=== PATIENT | female | born 1945 | race Caucasian/White ===

== ENCOUNTER 2018-12-08 07:04 | Observation (INO) | payer MEDICARE ==
[2018-12-08 07:54] LABS: BASO % 0.5 % (0-6); EOS % 6.8 % (0-6); GRAN % 54.5 % (47-80); HEMATOCRIT 39.9 % (35.0-47.0); HEMOGLOBIN 13.3 gm/dl (11.6-16.0); LYMPH % 27.7 % (16-45); MEAN CELL VOLUME 94.5 fl (81-97); MEAN CORPUSCULAR HEMOGLOBIN 31.5 pg (27-33); MEAN CORPUSCULAR HGB CONC 33.3 g/dl (32-36); MEAN PLATELET VOLUME 10.4 fl (7.4-10.4); MONO % 10.5 % (0-9); PLATELET COUNT 271 K/uL (130-400); RED BLOOD COUNT 4.22 M/uL (3.80-5.40); RED CELL DISTRIBUTION WIDTH 13.4 % (11.5-14.5); WHITE BLOOD COUNT W/O DIFF 5.6 K/uL (4.2-12.2)
[2018-12-08 08:08] LABS: BLOOD UREA NITROGEN 12 mg/dL (8-23); CREATININE 0.5 mg/dL (0.5-0.9); EST GLOMERULAR FILTRATION RATE > 60 mL/min; PARTIAL THROMBOPLASTIN TIME 35.8 SECONDS (24.5-39.1); PROTHROMBIN TIME (PATIENT) 19.8 SECONDS (9.5-12.1)
[2018-12-08 08:09] LABS: TOTAL PROTEIN 6.7 g/dL (6.6-8.7)
[2018-12-08 08:11] LABS: GLUCOSE,RANDOM 99 mg/dL (74-109)
[2018-12-08 08:13] LABS: ALB/GLOB RATIO 1.3 (1.1-1.8); ALBUMIN 3.8 g/dL (4.0-5.0); ALKALINE PHOSPHATASE 55 U/L (45-87); ALT/SGPT 13 U/L (<33); AST/SGOT 20 U/L (10.0-35.0); CREATINE PHOSPHOKINASE 42 U/L (26-192)
[2018-12-08] MEDS ORDERED: ASPIRIN 81 MG CHEWABLE TABLET PO ONE (08:15)
[2018-12-08 08:16] LABS: CKMB 1.3 ng/mL (<3.77)
--- NOTE | 2018-12-08 08:18 | Emergency Department Record ---
History of Present Illness - General Chief Complaint: Rapid heartbeat Stated Complaint: PALPITATIONS Time Seen by Provider: 12/08/18 07:32 Source: Patient Mode of Arrival: Ambulatory Limitations: No limitations - History of Present Illness Initial Comments: pt awoke to her heart racing. she has been having this off and on for 3 wks. she also had chest pain and l shoulder pain. MD Complaint: "Heart racing" Onset/Timin -: Hour(s) Context: Awoke with symptoms Associated Symptoms: Chest pain, Shortness of breath - Related Data Home Medications Medication Instructions Recorded Confirmed Last Taken Levothyroxine Sodium 100 mcg PO QAM 12/08/18 12/08/18 12/07/18 Warfarin Sodium 5 mg PO QHS 12/08/18 12/08/18 12/07/18 Allergies Allergy/AdvReac Type Severity Reaction Status Date / Time No Known Drug Allergies Allergy Verified 12/08/18 07:12 Travel Screening - Travel/Exposure Within Last 30 Days Have you traveled within the last 30 days?: No Review of Systems Reviewed: No additional complaints except as noted below Constitutional: Reports: As per HPI. Denies: Chills, Fever, Malaise, Night sweats, Weakness, Weight change Eyes: Reports: As per HPI. Denies: Eye discharge, Eye pain, Photophobia, Vision change ENT: Reports: As per HPI. Denies: Congestion, Dental pain, Ear pain, Epistaxis , Hearing loss, Throat pain Respiratory: Reports: As per HPI. Denies: Cough, Dyspnea, Hemoptysis, Stridor, Wheezes Cardiovascular: Reports: As per HPI, Chest pain, Palpitations. Denies: Arrhythmia, Dyspnea on exertion, Edema, Murmurs, Orthopnea, Paroxysmal nocturnal dyspnea, Rheumatic Fever, Syncope Endocrine: Reports: As per HPI. Denies: Fatigue, Heat or cold intolerance, Polydipsia, Polyuria Gastrointestinal: Reports: As per HPI. Denies: Abdominal pain, Constipation, Diarrhea, Hematemesis, Hematochezia, Melena, Nausea, Vomiting Genitourinary: Reports: As per HPI. Denies: Abnormal menses, Discharge, Dyspareunia, Dysuria, Frequency, Hematuria, Incontinence, Retention, Urgency Musculoskeletal: Reports: As per HPI. Denies: Arthralgia, Back pain, Gout, Joint swelling, Myalgia, Neck pain Skin: Reports: As per HPI. Denies: Bruising, Change in color, Change in hair/ nails, Lesions, Pruritus, Rash Neurological: Reports: As per HPI. Denies: Abnormal gait, Confusion, Headache, Numbness, Paresthesias, Seizure, Tingling, Tremors, Vertigo, Weakness Psychiatric: Reports: As per HPI. Denies: Anxiety, Auditory hallucinations, Depression, Homicidal thoughts, Suicidal thoughts, Visual hallucinations Hematological/Lymphatic: Reports: As per HPI. Denies: Anemia, Blood Clots, Easy bleeding, Easy bruising, Swollen glands Past Medical History - SOCIAL HISTORY Smoking Status: Former smoker Alcohol Use: None Drug Use: None - RESPIRATORY Hx Respiratory Disorders: Yes Hx Pulmonary Embolism: Yes - CARDIOVASCULAR Hx Cardio Disorders: No - NEURO Hx Neuro Disorders: No - GI Hx GI Disorders: No - Hx Genitourinary Disorders: No - ENDOCRINE Hx Endocrine Disorders: Yes Hx Thyroid Disease: Yes - MUSCULOSKELETAL Hx Musculoskeletal Disorders: No - PSYCH Hx Psych Problems: No - HEMATOLOGY/ONCOLOGY Hx Hematology/Oncology Disorders: No Family Medical History Any Significant Family History?: Yes Hx Heart Disease: Father, Mother Physical Exam - General General Appearance: Alert, Oriented x3, Cooperative, No acute distress - Head Head exam: Normal inspection - Eye Eye exam: Normal appearance, PERRL, EOMI Pupils: Normal accommodation - ENT ENT exam: Normal exam, Mucous membranes moist, Normal external ear exam, Normal orophraynx Ear exam: Normal external inspection. negative: External canal tenderness Nasal Exam: Normal inspection. negative: Discharge, Sinus tenderness Mouth exam: Normal external inspection, Tongue normal Teeth exam: Normal inspection. negative: Dental caries Throat exam: Normal inspection. negative: Tonsillar erythema, Tonsillar exudate - Neck Neck exam: Normal inspection, Full ROM. negative: Tenderness - Respiratory Respiratory exam: Normal lung sounds bilaterally. negative: Respiratory distress - Cardiovascular Cardiovascular Exam: Regular rate, Normal rhythm, Normal heart sounds - GI/Abdominal GI/Abdominal exam: Soft, Normal bowel sounds. negative: Tenderness - Rectal Rectal exam: Deferred - exam: Deferred - Extremities Extremities exam: Normal inspection, Full ROM, Normal capillary refill. negative: Tenderness - Back Back exam: Reports: Normal inspection, Full ROM. Denies: Muscle spasm, Rash noted, Tenderness - Neurological Neurological exam: Alert, CN II-XII intact, Normal gait, Oriented X3 - Psychiatric Psychiatric exam: Normal affect, Normal mood - Skin Skin exam: Dry, Intact, Normal color, Warm Course Vital Signs 12/08/18 07:08 Temperature 98.0 F Pulse Rate 76 Respiratory 18 Rate Blood Pressure 146/83 Pulse Ox 99 Medical Decision Making - Lab Data Result diagrams: 12/08/18 07:48 12/08/18 07:48 Lab Results 12/08/18 Range/Units 07:48 WBC 5.6 (4.2-12.2) K/uL RBC 4.22 (3.80-5.40) M/uL Hgb 13.3 (11.6-16.0) gm/dl Hct 39.9 (35.0-47.0) % MCV 94.5 (81-97) fl MCH 31.5 (27-33) pg MCHC 33.3 (32-36) g/dl RDW 13.4 (11.5-14.5) % Plt Count 271 (130-400) K/uL MPV 10.4 (7.4-10.4) fl Gran % 54.5 (47-80) % Lymphocytes % 27.7 (16-45) % Monocytes % 10.5 H (0-9) % Eosinophils % 6.8 H (0-6) % Basophils % 0.5 (0-6) % Disposition Disposition: Admit Clinical Impression: Palpitations Chest pain Qualifiers: Chest pain type: unspecified Qualified Code(s): R07.9 - Chest pain, unspecified Disposition: Still a Patient at [facility] Decision to Admit: Admit from ER Decision to Admit Date: 12/08/18 Decision to Admit Time: 10:33 Forms: Patient Portal Access Quality - Quality Measures Quality Measures: N/A - Blood Pressure Screening Does Patient Have Any of the Following: No Blood Pressure Classification: Pre-Hypertensive BP Reading Systolic Measurement: 146 Diastolic Measurement: 83 Screening for High Blood Pressure: < Pre-Hypertensive BP, F/U Documented > [ [id number]] Pre-Hypertensive Follow-up Interventions: Follow-up with rescreen every year.
[2018-12-08 08:24] LABS: THYROID STIMULATING HORMONE 1.23 uIU/mL (0.270-4.20)
[2018-12-08] MEDS ORDERED: NITROGLYCERIN 0.4MG SL TABLET #25 BTL SL PRN (11:48)
[2018-12-08] MEDS ORDERED: TEMAZEPAM 15 MG CAPSULE PO PRN (11:48)
[2018-12-08] MEDS ORDERED: ACETAMINOPHEN 500 MG TABLET PO PRN (11:48)
--- NOTE | 2018-12-08 12:14 | RADIOLOGY REPORT ---
EXAM: CHEST, TWO VIEWS HISTORY: PALPITATIONS, LEFT ARM PAIN. MILD DIFFICULTY IN BREATHING. TECHNIQUE: Upright PA and lateral views of the chest were obtained. Comparison: CT angiogram of the chest dated 04/21/18. FINDINGS: The heart is not enlarged. No pulmonary venous hypertension is seen. The thoracic aorta is mildly tortuous and atherosclerotic. Changes of emphysema are suggested in the upper lungs. Biapical lung scarring is present. No confluent air space opacity is seen nor is there costophrenic angle blunting or pneumothorax. There are degenerative changes scattered throughout the visualized spine. IMPRESSION: 1. NO RADIOGRAPHIC EVIDENCE OF ACUTE CARDIOPULMONARY DISEASE. 2. EMPHYSEMA. BIAPICAL LUNG SCARRING. JOB NUMBER: [id number] [facility]
--- NOTE | 2018-12-08 12:23 | History & Physical ---
History of Present Illness - Date of Service Date of Service for History & Physical: 12/09/18 - History of Present Illness Admitting Diagnosis: palpitations, cp History of Present Illness: 73 yo female presents for palpitations and CP on/off 3 weeks. PMH PE 10 yrs ago- coumadin, hypothyroid, former smoker, 12/08/18 Pt to [facility] ER via ambulance for CP/Palpiations. CP was radiating to left arm ad that is when pt called ems. given NTG previous to arrival, pain 2/10 at arrival. WBC 5.6, hgb 13.3, hct 39.9, Plt 271 D-Dimer <0.19, INT 2 (theraputic coumadin) Na 135, K 3.8, Cl 99, CO2 24, Anion gap 12, bun 12, Cr 0.5, GFR >60, LFTs wnl trop <0.010, CKMB 1.3 TSH 1.23 98.0F, 76, 146/83, RR 18, 99% RA, 11/29 pain CXR no acute process -emphysema ASA 324mg PO Admit for CP, cardiac workup 12/08/18 Pt resting in bed, no distress and pain free. VSS, pt sitting up in bed, eating lunch. Labs negative currently, neg ekg. Pt denies any immediate concers as pain has resolved but still worried why sensation of "skipped beats" has been waking her up for 3 weeks. lungs clear but diminished, heart rate regular but auscultated and palpated what sounds like early beats. Continuos tele and cards consult am. repeat trop and ckmb PCP [facility] Travel Screening - Travel/Exposure Within Last 30 Days Have you traveled within the last 30 days?: No - Travel/Exposure Within Last Year Have you traveled outside the [place] in the last year?: No - Additonal Travel Details Have you been exposed to anyone with a communicable illness?: No - Travel Symptoms Symptom Screening: None Review of Systems Constitutional: Reports: As per HPI. Denies: Chills, Fever, Malaise, Night sweats, Weakness, Weight change Eyes: Reports: As per HPI. Denies: Eye discharge, Eye pain, Photophobia, Vision change ENT: Reports: As per HPI. Denies: Congestion, Dental pain, Ear pain, Epistaxis , Hearing loss, Throat pain Respiratory: Reports: As per HPI. Denies: Cough, Dyspnea, Hemoptysis, Stridor, Wheezes Cardiovascular: Reports: As per HPI, Chest pain, Palpitations. Denies: Arrhythmia, Dyspnea on exertion, Edema, Murmurs, Orthopnea, Paroxysmal nocturnal dyspnea, Rheumatic Fever, Syncope Endocrine: Reports: As per HPI. Denies: Fatigue, Heat or cold intolerance, Polydipsia, Polyuria Gastrointestinal: Reports: As per HPI. Denies: Abdominal pain, Constipation, Diarrhea, Hematemesis, Hematochezia, Melena, Nausea, Vomiting Genitourinary: Reports: As per HPI. Denies: Abnormal menses, Discharge, Dyspareunia, Dysuria, Frequency, Hematuria, Incontinence, Retention, Urgency Musculoskeletal: Reports: As per HPI. Denies: Arthralgia, Back pain, Gout, Joint swelling, Myalgia, Neck pain Skin: Reports: As per HPI. Denies: Bruising, Change in color, Change in hair/ nails, Lesions, Pruritus, Rash Neurological: Reports: As per HPI. Denies: Abnormal gait, Confusion, Headache, Numbness, Paresthesias, Seizure, Tingling, Tremors, Vertigo, Weakness Psychiatric: Reports: As per HPI. Denies: Anxiety, Auditory hallucinations, Depression, Homicidal thoughts, Suicidal thoughts, Visual hallucinations Hematological/Lymphatic: Reports: As per HPI. Denies: Anemia, Blood Clots, Easy bleeding, Easy bruising, Swollen glands Past Medical History - SOCIAL HISTORY Smoking Status: Former smoker Alcohol Use: None Drug Use: None - RESPIRATORY Hx Respiratory Disorders: Yes Hx Pulmonary Embolism: Yes - CARDIOVASCULAR Hx Cardio Disorders: No - NEURO Hx Neuro Disorders: No - GI Hx GI Disorders: No - Hx Genitourinary Disorders: No - ENDOCRINE Hx Endocrine Disorders: Yes Hx Thyroid Disease: Yes - MUSCULOSKELETAL Hx Musculoskeletal Disorders: No - PSYCH Hx Psych Problems: No - HEMATOLOGY/ONCOLOGY Hx Hematology/Oncology Disorders: No Family Medical History Any Significant Family History?: Yes Hx Heart Disease: Father, Mother H&P Meds/Allergies - Allergies Allergies: Allergies Allergy/AdvReac Type Severity Reaction Status Date / Time No Known Drug Allergies Allergy Verified 12/08/18 07:12 - Home Medications Home Medications Medication Instructions Recorded Confirmed Last Taken Levothyroxine Sodium 100 mcg PO QAM 12/08/18 12/08/18 12/07/18 Warfarin Sodium 0.5 mg PO QHS 12/08/18 12/08/18 12/07/18 Warfarin Sodium 5 mg PO QHS 12/08/18 12/08/18 12/07/18 - Active Medications Active Medications: Current Medications Acetaminophen (Tylenol 500mg Tab) 1,000 mg PO Q6H PRN PRN Reason: PAIN - MILD(1-4)/FEVER Aspirin (Ecotrin (Ec)) 325 mg PO DAILY MAILE Levothyroxine Sodium (Synthroid) 100 mcg PO DAILYTHY MAILE Nitroglycerin (Nitrostat 0.4mg) 0.4 mg SL Q5MIN PRN PRN Reason: CHEST PAIN Temazepam (Restoril) 15 mg PO QHS PRN PRN Reason: INSOMNIA Warfarin Sodium (Coumadin) 5 mg PO QHS [facility] Physical Exam - Vital Signs Vital Signs: Vital Signs - Last 24 Hrs Temp Pulse Pulse Resp BP BP BP 12/08/18 11:04 67 16 121/72 12/08/18 09:13 70 20 156/77 12/08/18 07:08 98.0 F 76 18 146/83 Pulse Ox 12/08/18 11:04 95 12/08/18 09:13 98 12/08/18 07:08 99 - General General Appearance: Alert, Oriented x3, Cooperative, No acute distress Limitations: No limitations - Head Head exam: Normal inspection - Eye Eye exam: Normal appearance, PERRL, EOMI Pupils: Normal accommodation - ENT ENT exam: Normal exam, Mucous membranes moist, Normal external ear exam, Normal orophraynx Ear exam: Normal external inspection. negative: External canal tenderness Nasal Exam: Normal inspection. negative: Discharge, Sinus tenderness Mouth exam: Normal external inspection, Tongue normal Teeth exam: Normal inspection. negative: Dental caries Throat exam: Normal inspection. negative: Tonsillar erythema, Tonsillar exudate - Neck Neck exam: Normal inspection, Full ROM. negative: Tenderness - Respiratory Respiratory exam: Normal lung sounds bilaterally. negative: Respiratory distress - Cardiovascular Cardiovascular Exam: Regular rate, Normal rhythm, Normal heart sounds Peripheral Pulses: 3+: Radial (R), Radial (L), Dorsalis Pedis (R), Dorsalis Pedis (L) - GI/Abdominal GI/Abdominal exam: Soft, Normal bowel sounds. negative: Tenderness - Rectal Rectal exam: Deferred - exam: Deferred - Extremities Extremities exam: Normal inspection, Full ROM, Normal capillary refill. negative: Tenderness - Back Back exam: Reports: Normal inspection, Full ROM. Denies: Muscle spasm, Rash noted, Tenderness - Neurological Neurological exam: Alert, CN II-XII intact, Normal gait, Oriented X3 - Psychiatric Psychiatric exam: Normal affect, Normal mood - Skin Skin exam: Dry, Intact, Normal color, Warm Results - Labs Result Diagrams: 12/08/18 07:48 12/08/18 07:48 Labs Last 24 Hours: Laboratory Results - last 24 hr 12/08/18 12/08/18 12/08/18 07:48 07:48 07:48 WBC 5.6 RBC 4.22 Hgb 13.3 Hct 39.9 MCV 94.5 MCH 31.5 MCHC 33.3 RDW 13.4 Plt Count 271 MPV 10.4 Gran % 54.5 Lymphocytes % 27.7 Monocytes % 10.5 H Eosinophils % 6.8 H Basophils % 0.5 PT 19.8 H INR 2.0 APTT 35.8 D-Dimer < 0.19 Sodium 135 L Potassium 3.8 Chloride 99 Carbon Dioxide 24.0 Anion Gap 12.0 BUN 12 Creatinine 0.5 Estimated GFR > 60 Random Glucose 99 Calcium 9.0 Total Bilirubin 0.50 AST 20 ALT 13 Alkaline Phosphatase 55 Creatine Kinase 42 CK-MB (CK-2) 1.3 Troponin T < 0.010 Total Protein 6.7 Albumin 3.8 L Globulin 2.9 Albumin/Globulin Ratio 1.3 TSH 1.23 - Imaging and Cardiology Chest x-ray Status: Report reviewed VTE H&P Assessment - Risk for VTE Risk for VTE: Yes Risk Level: High Risk Assessment Date: 12/08/18 Risk Assessment Time: 12:30 VTE Orders Placed or Will Be Placed: No VTE Reason for No Prophylaxis: Contraindicated (on coumadin) Plan - Detailed Diagnosis and Plan (1) Palpitations Current Visit: Yes Status: Acute Base Code: R00.2 - PALPITATIONS Comment: 12/08/18 -pt reports 3 weeks of "skipped beat" sensation, PAC seen on tele and noted with assessment but pt in no distrss -EKG WNL, trops neg -Card consult pending, ECHO pending - mag wnl (2) Chest pain Current Visit: Yes Status: Acute Qualifiers: Chest pain type: unspecified Qualified Code(s): R07.9 - Chest pain, unspecified Base Code: R07.9 - CHEST PAIN, UNSPECIFIED Comment: 12/08/18 -Pt had CP previous to arrival to the floor, currently pain free -continue tele (3) DVT prophylaxis Current Visit: Yes Status: Acute Base Code: [id number] - Comment: 12/08/18 -hold lovenox, pt theraputic coumadin (4) Full code status Current Visit: Yes Status: Acute Base Code: Z78.9 - OTHER SPECIFIED HEALTH STATUS Comment: 12/08/18 -full code
[2018-12-08] MEDS ORDERED: PNEUM 13-VAL/PF 0.5 ML IM ONE (12:44)
[2018-12-08] MEDS ORDERED: WARFARIN 1 MG TABLET PO SCH (22:00)
[2018-12-08] MEDS ORDERED: WARFARIN 5 MG TAB PO SCH (22:00)
[2018-12-09 01:16] LABS: CKMB < 1.0 ng/mL (<3.77)
[2018-12-09] MEDS ORDERED: LEVOTHYROXINE SODIUM 100 MCG TABLET PO SCH (07:00)
[2018-12-09] MEDS ORDERED: ASPIRIN 325 MG TAB ENTERIC-COATED PO SCH (10:00)
--- NOTE | 2018-12-09 12:58 | Discharge Summary ---
Providers Discharge Summary Date: 12/09/18 Date of admission: 12/08/18 11:21 Expected Date of Discharge: 12/09/18 Attending physician: SLICK AMIN Primary care physician: FREDERIC REGALADO D.O. Consults: Consult Orders 12/08/18 12:23 Consult - Cardiology NOW Consulting Provider: JORGE MENDOSA Physician Instructions: Reason For Exam: CP, palpitations Does pt have current die setter?: Not Established Physical Exam - Vital Signs Vital Signs: Vital Signs - Last 24 Hrs Temp Pulse Pulse Resp BP BP Pulse Ox 12/09/18 10:28 97.8 F 66 16 114/63 97 12/09/18 05:00 97.9 F 71 16 124/71 94 L 12/09/18 01:00 98.1 F 76 16 140/78 97 12/08/18 21:00 98.1 F 71 76 16 124/72 97 12/08/18 13:48 98 12/08/18 13:02 16 98 - General General Appearance: Alert, Oriented x3, Cooperative, No acute distress Limitations: No limitations - Head Head exam: Normal inspection - Eye Eye exam: Normal appearance, PERRL, EOMI Pupils: Normal accommodation - ENT ENT exam: Normal exam, Mucous membranes moist, Normal external ear exam, Normal orophraynx Ear exam: Normal external inspection. negative: External canal tenderness Nasal Exam: Normal inspection. negative: Discharge, Sinus tenderness Mouth exam: Normal external inspection, Tongue normal Teeth exam: Normal inspection. negative: Dental caries Throat exam: Normal inspection. negative: Tonsillar erythema, Tonsillar exudate - Neck Neck exam: Normal inspection, Full ROM. negative: Tenderness - Respiratory Respiratory exam: Normal lung sounds bilaterally. negative: Respiratory distress - Cardiovascular Cardiovascular Exam: Regular rate, Normal rhythm, Normal heart sounds Peripheral Pulses: 3+: Radial (R), Radial (L), Dorsalis Pedis (R), Dorsalis Pedis (L) - GI/Abdominal GI/Abdominal exam: Soft, Normal bowel sounds. negative: Tenderness - Rectal Rectal exam: Deferred - exam: Deferred - Extremities Extremities exam: Normal inspection, Full ROM, Normal capillary refill. negative: Tenderness - Back Back exam: Reports: Normal inspection, Full ROM. Denies: Muscle spasm, Rash noted, Tenderness - Neurological Neurological exam: Alert, CN II-XII intact, Normal gait, Oriented X3 - Psychiatric Psychiatric exam: Normal affect, Normal mood - Skin Skin exam: Dry, Intact, Normal color, Warm Hospitalization - Hospitalization Admission Diagnosis: palpitations, cp - Problem List/Discharge Diagnosis (1) Palpitations Status: Acute Base Code: R00.2 - PALPITATIONS Comment: 12/08/18 -pt reports 3 weeks of "skipped beat" sensation, PAC seen on tele and noted with assessment but pt in no distrss -EKG WNL, trops neg -Card consult pending, ECHO pending - mag wnl 12/09/18 -ECHO completed this afternoon, Navya consulted on pt -verbal instructions to d/c with 48 hr holter and f/u OTPT -PACs noted during tele with underlying NSR -Dr Mendosa approved d/c (2) Chest pain Status: Acute Discharge Diagnosis: Chest pain type: unspecified Qualified Code(s): R07.9 - Chest pain, unspecified Base Code: R07.9 - CHEST PAIN, UNSPECIFIED Comment: 12/08/18 -Pt had CP previous to arrival to the floor, currently pain free -continue tele 12/09/18 - denies CP this admission. -trop, CKMB neg, ekg neg, echo (report pending, reviewed by Navya) (3) DVT prophylaxis Status: Acute Base Code: SAD0189 - Comment: 12/08/18 -hold lovenox, pt theraputic coumadin 12/09/18 -continue coumadin (4) Full code status Status: Acute Base Code: Z78.9 - OTHER SPECIFIED HEALTH STATUS Comment: 12/09 -full code - Hospitalization Course Disposition: Home, Self-Care Hospital Course: 73 yo female presents for palpitations and CP on/off 3 weeks. PMH PE 10 yrs ago- coumadin, hypothyroid, former smoker, 12/08/18 Pt to [facility] ER via ambulance for CP/Palpiations. CP was radiating to left arm ad that is when pt called ems. given NTG previous to arrival, pain 2/10 at arrival. WBC 5.6, hgb 13.3, hct 39.9, Plt 271 D-Dimer <0.19, INT 2 (theraputic coumadin) Na 135, K 3.8, Cl 99, CO2 24, Anion gap 12, bun 12, Cr 0.5, GFR >60, LFTs wnl trop <0.010, CKMB 1.3 TSH 1.23 98.0F, 76, 146/83, RR 18, 99% RA, 2/10 pain CXR no acute process -emphysema ASA 324mg PO Admit for CP, cardiac workup 12/08/18 Pt resting in bed, no distress and pain free. VSS, pt sitting up in bed, eating lunch. Labs negative currently, neg ekg. Pt denies any immediate concers as pain has resolved but still worried why sensation of "skipped beats" has been waking her up for 3 weeks. lungs clear but diminished, heart rate regular but auscultated and palpated what sounds like early beats. Continuos tele and cards consult am. repeat trop and ckmb PCP [facility] Procedures: Imaging and X-Rays 12/08/18 08:29 CXR [CHEST 2 VIEWS] [RAD] Stat Cardiology Procedures 12/08/18 07:28 EKG ONCE 12/08/18 10:25 EKG ONCE 12/08/18 11:48 E Learning Developer .Continuous EKG QDX2@0600 12/08/18 21:12 Echo W/CF & Cardiac Doppler NOW 12/09/18 12:45 Holter Monitor NOW Abnormal Labs: Abnormal Lab Results 12/08/18 12/08/18 12/08/18 Range/Units 07:48 07:48 07:48 Monocytes % 10.5 H (0-9) % Eosinophils % 6.8 H (0-6) % PT 19.8 H (9.5-12.1) SECONDS Sodium 135 L (136-145) mmol/L Albumin 3.8 L (4.0-5.0) g/dL LDL Cholesterol Measurd (0-100) mg/dL HDL Cholesterol (40-60) mg/dL 12/08/18 Range/Units 07:48 Monocytes % (0-9) % Eosinophils % (0-6) % PT (9.5-12.1) SECONDS Sodium (136-145) mmol/L Albumin (4.0-5.0) g/dL LDL Cholesterol Measurd 168.0 H (0-100) mg/dL HDL Cholesterol 69 H (40-60) mg/dL Condition at Discharge: (2) Stable Discharge Medications - Discharge Medications Home Medications: Ambulatory Orders Levothyroxine Sodium 100 mcg PO QAM 12/08/18 [Last Taken 12/07/18] Warfarin Sodium 0.5 mg PO QHS 12/08/18 [Last Taken 12/07/18] Warfarin Sodium 5 mg PO QHS 12/08/18 [Last Taken 12/07/18] Acetaminophen [Tylenol 500Mg Tab] 1,000 mg PO Q6H PRN tablet 12/09/18 [Last Taken Unknown] Temazepam [Restoril] 15 mg PO QHS PRN cap 12/09/18 [Last Taken Unknown] Warfarin Sodium [Coumadin] 0.5 mg PO QHS tablet 12/09/18 [Last Taken Unknown] Discharge Plan - Discharge Instructions Activity at Discharge: Increase Activity as Tolerated Diet at Discharge: Advance to Usual Diet Instructions: Chest Pain (DC), Heart Palpitations (DC), Holter Monitoring (DC) , Deep Vein Thrombosis Prevention (DC) Additional Instructions: 2 Activity: Increase Activity as Tolerated 2 Diet: Advance to Usual Diet 2 Consults: 2 Follow Up: Make an appointment to follow up with Dr. Mendosa in the specialty clinic here at [facility] in one week 2 Dressing/Wound Care: (Type) (Change) 2 Additional: Continue your current diet, follow up with Dr Mendosa as an out patient Go to ER for any return of chest pain especially if you have radiating pain to your left arm, left jaw, or abdomen. Continue current medications Quality Measures - Quality Measures Quality Measures: Advance Directives, Documentation of Current Medications in Medical Record, Elder Maltreatment Screen and Follow-Up Plan, Screening for High Blood Pressure and F/U Documented - Current Medications Quality Measure: Measure #130: Documentation of Current Medications Documentation of Current Medications: <Current Medications Documented/Reviewed> [G8427] - Blood Pressure Screening Quality Measure: Screening for High Blood Pressure and Follow-Up Documented Does Patient Have Any of the Following: No Blood Pressure Classification: Pre-Hypertensive BP Reading Systolic Measurement: 146 Diastolic Measurement: 83 Screening for High Blood Pressure: < Pre-Hypertensive BP, F/U Documented > [ G8950] Pre-Hypertensive Follow-up Interventions: Referral to alternative/primary care provider. - Advance Directives Quality Measure: Measure #47: Care Plan Advance Directives Established: No (Informational pamphlet given to patient.) Advance Directives Information Provided To Patient: No Advance Directives on File: No Living Will: No Power of Furniture Manager: No Advance Care Planning: <Care Plan/Decision Maker Not Decided; Discussed & Documented> [1124F] - Elder Abuse Suspicion Index Screening: Elder Abuse Suspicion Index Screening Rely on people for bathing, dressing, shopping, banking, etc: No Prevented from getting food, clothes, medication, etc: No Made to feel shamed or threatened by someone: No Forced to sign papers or use money against will: No Feel afraid, touched in ways not wanted or hurt physically: No Poor eye contact, withdrawn, malnourished, cuts or bruises: No Screening Result: Negative result EASI Reference Information: Alannah DIAS, Freda C, Ehsan D, Paul Gaytan.Development and validation of a tool to assist physicians identification of elder abuse: The Elder Abuse Suspicion Index (EASI ). Journal of Elder Abuse and Neglect, 2008; 20 (3): 276-300. - Elder Maltreatment Screen Quality Measures: Elder Maltreatment Screen and Follow-Up Plan Elder Maltreatment Screen: <Negative, No Follow-Up Plan Required> [G8734]
--- NOTE | 2018-12-09 19:39 | Cardiology Consult ---
DATE: 12/09/2018 CONSULTING PHYSICIAN: JORGE WILSON M.D. REASON FOR CONSULTATION: CHEST PAIN AND PALPITATIONS. Ms. Jasso is 73 years old, who presented to [facility] with complaints of nightly palpitations and left arm pain. She reports feeling fast heart rates at night when laying down for the past two weeks. She also noted some left arm pain, which instigated her to coming to [facility] on 12/08/2018. Currently, she denies chest pain, palpitations, TIA, syncope, or heart failure symptoms. She does have a remote history of pulmonary embolism greater than ten years ago. She has history of hypothyroidism, on Levothyroxine. Her cardiac enzymes have been negative. She is on Warfarin for long-term treatment of pulmonary embolism. She does not recall if she had a hyper-coagulable state. PAST MEDICAL HISTORY INCLUDES: 1. Hypothyroidism. 2. Pulmonary embolism. PAST SURGICAL HISTORY: Nothing significant. MEDICATIONS AT HOME INCLUDE: Levothyroxine 100 mcg daily Warfarin as directed ALLERGIES: NONE REPORTED. SOCIAL HISTORY: She denies any active tobacco use. No significant alcohol use. FAMILY HISTORY: Noncontributory in regard to coronary artery disease. PHYSICAL EXAM: GENERAL: She is afebrile. VITAL SIGNS: Pulse is in the 70's. Respirations 18. Blood pressure was 146/83. LUNGS: Clear to auscultation. CARDIAC EXAM: Normal. ABDOMEN: Soft. EXTREMITIES: Reveal no edema. ECHOCARDIOGRAM: Demonstrated normal ejection fraction and normal pulmonary pressures. There were no significant structural abnormalities noted. IMPRESSION/PLAN: Her cardiac enzymes are currently negative. Currently, she can be discharged for outpatient follow-up. Will place a 48-hour Holter monitor to assess daily palpitations occurring nightly. In addition, will plan on a Treadmill Stress Test as an outpatient. JOB NUMBER: [id number] MTDD
== END 2018-12-09 14:55 | disposition home or self-care (01) ==
LOC: ER 07:04 → MEDSURG 11:21
PROVIDERS: ADMIT Internal Medicine; ATTEND Internal Medicine
DX: R07.9 Chest pain, unspecified (principal); E03.9 Hypothyroidism, unspecified; M25.512 Pain in left shoulder; Z86.711 Personal history of pulmonary embolism; Z79.01 Long term (current) use of anticoagulants; Z87.891 Personal history of nicotine dependence
CPT/HCPCS: 82550; 83735; 85025; 85730; 85610; 82553 ×2; 80053; 84443; 80061; 84484 ×2; 85379; 71046; 93005 ×2; 93010; 93306; 93225; 93226; G0378 ×2; 99220; 99285

== ENCOUNTER 2019-07-09 07:36 | Emergency (ER) | payer MEDICARE ==
[2019-07-09] MEDS ORDERED: TOPICAL LIDOCAINE W/ EPI 5 ML TOP ONE (07:44)
[2019-07-09 08:08] LABS: ABSOLUTE NEUTROPHIL COUNT 3.07; BASO % 0.5 % (0-6); EOS % 6.8 % (0-6); GRAN % 53.8 % (47-80); HEMATOCRIT 35.1 % (35.0-47.0); HEMOGLOBIN 12.7 gm/dl (11.6-16.0); LYMPH % 28.4 % (16-45); MEAN CELL VOLUME 93.1 fl (81-97); MEAN CORPUSCULAR HEMOGLOBIN 33.6 pg (27-33); MEAN CORPUSCULAR HGB CONC 36.2 g/dl (32-36); MONO % 10.5 % (0-9); PLATELET COUNT 239 K/uL (130-400); RED BLOOD COUNT 3.77 M/uL (3.80-5.40); RED CELL DISTRIBUTION WIDTH 13.9 % (11.5-14.5); WHITE BLOOD COUNT W/O DIFF 5.7 K/uL (4.2-12.2)
[2019-07-09 08:18] LABS: INR 2.7; PROTHROMBIN TIME (PATIENT) 26.8 SECONDS (9.5-12.1)
--- NOTE | 2019-07-09 09:29 | Emergency Department Record ---
History of Present Illness - General Chief complaint: Nosebleed/epistaxis Stated complaint: NOSE BLEED Time Seen by Provider: 07/09/19 07:39 Source: Patient Mode of Arrival: Ambulatory Limitations: No limitations - History of Present Illness Initial comments: pt has had a nosebleed since 7am. she has had them in the past and has had to be cauterized in the past. she recently had her coumadin increased. MD complaint: Epistaxis Onset/Timin -: Minutes(s) Location: Nose Consistency: Constant Improves with: Pressure Context-Epistaxis: Warfarin use - Related Data Home Medications Medication Instructions Recorded Confirmed Last Taken Ascorbic Acid [Vitamin C] 1,000 mg PO DAILY 07/09/19 07/09/19 07/08/19 Ca/D3/Mag Ox/Zinc/Hat Trimmer/Sergio/Bor 1 tab PO DAILY 07/09/19 07/09/19 07/08/19 [Calcium 600-D3 Plus Caplet] Pravastatin Sodium [Pravachol] 40 mg PO QHS 07/09/19 07/09/19 07/08/19 Ubidecarenone [Co Q-10] 100 mg PO DAILY 07/09/19 07/09/19 07/08/19 Previous Rx's Medication Instructions Recorded Acetaminophen [Tylenol 500Mg Tab] 1,000 mg PO Q6H PRN tablet 12/09/18 Allergies Allergy/AdvReac Type Severity Reaction Status Date / Time No Known Drug Allergies Allergy Verified 12/08/18 07:12 Travel Screening - Travel/Exposure Within Last 30 Days Have you traveled within the last 30 days?: No - Travel/Exposure Within Last Year Have you traveled outside the [place] in the last year?: No - Additonal Travel Details Have you been exposed to anyone with a communicable illness?: No Review of Systems Reviewed: No additional complaints except as noted below Constitutional: Reports: As per HPI. Denies: Chills, Fever, Malaise, Night swe ats, Weakness, Weight change Eyes: Reports: As per HPI. Denies: Eye discharge, Eye pain, Photophobia, Vision change ENT: Reports: As per HPI. Denies: Congestion, Dental pain, Ear pain, Epistaxis, Hearing loss, Throat pain Respiratory: Reports: As per HPI. Denies: Cough, Dyspnea, Hemoptysis, Stridor, Wheezes Cardiovascular: Reports: As per HPI. Denies: Arrhythmia, Chest pain, Dyspnea on exertion, Edema, Murmurs, Orthopnea, Palpitations, Paroxysmal nocturnal dyspnea, Rheumatic Fever, Syncope Endocrine: Reports: As per HPI. Denies: Fatigue, Heat or cold intolerance, Polydipsia, Polyuria Gastrointestinal: Reports: As per HPI. Denies: Abdominal pain, Constipation, Diarrhea, Hematemesis, Hematochezia, Melena, Nausea, Vomiting Genitourinary: Reports: As per HPI. Denies: Abnormal menses, Discharge, Dyspareunia, Dysuria, Frequency, Hematuria, Incontinence, Retention, Urgency Musculoskeletal: Reports: As per HPI. Denies: Arthralgia, Back pain, Gout, Joint swelling, Myalgia, Neck pain Skin: Reports: As per HPI. Denies: Bruising, Change in color, Change in hair/ nails, Lesions, Pruritus, Rash Neurological: Reports: As per HPI. Denies: Abnormal gait, Confusion, Headache, Numbness, Paresthesias, Seizure, Tingling, Tremors, Vertigo, Weakness Psychiatric: Reports: As per HPI. Denies: Anxiety, Auditory hallucinations, Depression, Homicidal thoughts, Suicidal thoughts, Visual hallucinations Hematological/Lymphatic: Reports: As per HPI. Denies: Anemia, Blood Clots, Easy bleeding, Easy bruising, Swollen glands Past Medical History - SOCIAL HISTORY Smoking Status: Former smoker Alcohol Use: None Drug Use: None - RESPIRATORY Hx Respiratory Disorders: Yes Hx Pulmonary Embolism: Yes - CARDIOVASCULAR Hx Cardio Disorders: No - NEURO Hx Neuro Disorders: Yes Hx Dizziness: Yes - GI Hx GI Disorders: No - Hx Genitourinary Disorders: No - ENDOCRINE Hx Endocrine Disorders: Yes Hx Thyroid Disease: Yes - MUSCULOSKELETAL Hx Musculoskeletal Disorders: No - PSYCH Hx Psych Problems: No - HEMATOLOGY/ONCOLOGY Hx Hematology/Oncology Disorders: No Family Medical History Any Significant Family History?: No Hx Heart Disease: Father, Mother Physical Exam - General General Appearance: Alert, Oriented x3, Cooperative, No acute distress - Head Head exam: Normal inspection - Eye Eye exam: Normal appearance, PERRL, EOMI Pupils: Normal accommodation - ENT ENT exam: Normal exam, Mucous membranes moist, Normal external ear exam, Normal orophraynx Ear exam: Normal external inspection. negative: External canal tenderness Nasal Exam: Dried blood. negative: Discharge, Sinus tenderness Mouth exam: Normal external inspection, Tongue normal Teeth exam: Normal inspection. negative: Dental caries Throat exam: Normal inspection. negative: Tonsillar erythema, Tonsillar exudate - Neck Neck exam: Normal inspection, Full ROM. negative: Tenderness - Respiratory Respiratory exam: Normal lung sounds bilaterally. negative: Respiratory distress - Cardiovascular Cardiovascular Exam: Regular rate, Normal rhythm, Normal heart sounds - GI/Abdominal GI/Abdominal exam: Soft, Normal bowel sounds. negative: Tenderness - Rectal Rectal exam: Deferred - exam: Deferred - Extremities Extremities exam: Normal inspection, Full ROM, Normal capillary refill. negative: Tenderness - Back Back exam: Reports: Normal inspection, Full ROM. Denies: Muscle spasm, Rash noted, Tenderness - Neurological Neurological exam: Alert, CN II-XII intact, Normal gait, Oriented X3 - Psychiatric Psychiatric exam: Normal affect, Normal mood - Skin Skin exam: Dry, Intact, Normal color, Warm Course Vital Signs 07/09/19 07:38 Temperature 97.2 F L Pulse Rate 70 Respiratory 16 Rate Blood Pressure 142/82 Pulse Ox 97 - Reevaluation(s) Reevaluation #1: 07/09/19 09:30 lido w epi used then cauterized w silver nitrate. no further bleeding Medical Decision Making - Lab Data Result diagrams: 07/09/19 08:06 Lab Results 07/09/19 07/09/19 Range/Units 08:06 08:06 WBC 5.7 (4.2-12.2) K/uL RBC 3.77 L (3.80-5.40) M/uL Hgb 12.7 (11.6-16.0) gm/dl Hct 35.1 (35.0-47.0) % MCV 93.1 (81-97) fl MCH 33.6 H (27-33) pg MCHC 36.2 H (32-36) g/dl RDW 13.9 (11.5-14.5) % Plt Count 239 (130-400) K/uL MPV 9.0 (7.4-10.4) fl Gran % 53.8 (47-80) % Lymphocytes % 28.4 (16-45) % Monocytes % 10.5 H (0-9) % Eosinophils % 6.8 H (0-6) % Basophils % 0.5 (0-6) % Absolute Neutrophils 3.07 PT 26.8 H (9.5-12.1) SECONDS INR 2.7 Disposition Disposition: Discharge Clinical Impression: Epistaxis Disposition: Home, Self-Care Condition: (1) Good Instructions: Nosebleed (ED) Additional Instructions: follow up with family doctor. return sooner if worse. do not blow or pick at nose. Forms: Patient Portal Access Quality - Quality Measures Quality Measures: N/A - Blood Pressure Screening Does Patient Have Any of the Following: Active Dx of HTN Blood Pressure Classification: Pre-Hypertensive BP Reading Systolic Measurement: 142 Diastolic Measurement: 82 Screening for High Blood Pressure: Patient Exclusion, Hx of HTN [G9744]
== END 2019-07-09 09:46 | disposition home or self-care (01) ==
LOC: ER 07:36
DX: R04.0 Epistaxis (principal); Z79.01 Long term (current) use of anticoagulants; I10 Essential (primary) hypertension; Z87.891 Personal history of nicotine dependence
CPT/HCPCS: 30901; 85025; 85610; 99283

== ENCOUNTER 2019-08-10 19:51 | Observation (INO) | payer MEDICARE ==
[2019-08-10] MEDS ORDERED: ONDANSETRON HCL IV 4 MG/2 ML VIAL IVP ONE (19:58)
[2019-08-10] MEDS ORDERED: HYOSCYAMINE SULFATE ODT 0.125 MG TAB.SUBL SL ONE (19:58)
[2019-08-10] MEDS ORDERED: 0.9 % SODIUM CHLORIDE 1000ML 1,000 ML IV SCH (20:00)
--- NOTE | 2019-08-10 20:03 | Emergency Department Record ---
History of Present Illness - General Chief Complaint: Palpitations Stated Complaint: RAPIDS HEART RATE/SICK TO HER STOMACH Time Seen by Provider: 08/10/19 19:54 Source: Patient Mode of Arrival: Wheelchair Limitations: No limitations - History of Present Illness Initial Comments: 74 yo female presents to ED for evaluation of upper abdominal pain, nausea, loose stools, and "rapid heart beat" intermittently. Patient reports that her symptoms began this morning, denies fevers, chills, or recent illness. Patient denies taking anything for her symptoms prior to arrival. Patient denies vomiting or chest discomfort symptoms. MD Complaint: Palpitations Onset/Timin -: Days(s) Context: Occurred during rest Associated Symptoms: Nausea/vomiting - Related Data Home Medications Medication Instructions Recorded Confirmed Last Taken Mag Carb/Aluminum Hydrox/Algin 355 ml PO QID 08/10/19 08/10/19 08/10/19 [Gaviscon Liquid] Previous Rx's Medication Instructions Recorded Acetaminophen [Tylenol 500Mg Tab] 1,000 mg PO Q6H PRN tablet 12/09/18 Allergies Allergy/AdvReac Type Severity Reaction Status Date / Time No Known Drug Allergies Allergy Verified 12/08/18 07:12 Review of Systems Constitutional: Denies: Chills, Fever, Malaise, Night sweats Eyes: Denies: Eye discharge, Eye pain ENT: Denies: Congestion, Ear pain, Epistaxis Respiratory: Denies: Cough, Dyspnea Cardiovascular: Reports: Palpitations. Denies: Chest pain, Dyspnea on exertion Endocrine: Denies: Fatigue, Heat or cold intolerance Gastrointestinal: Reports: Nausea. Denies: Abdominal pain, Vomiting Genitourinary: Denies: Incontinence, Retention Musculoskeletal: Denies: Arthralgia, Back pain Skin: Denies: Bruising, Change in color Neurological: Denies: Abnormal gait, Confusion, Headache, Seizure Psychiatric: Denies: Anxiety Hematological/Lymphatic: Denies: Anemia, Blood Clots Past Medical History - SOCIAL HISTORY Smoking Status: Former smoker Drug Use: None - RESPIRATORY Hx Respiratory Disorders: Yes Hx Pulmonary Embolism: Yes - CARDIOVASCULAR Hx Cardio Disorders: No - NEURO Hx Neuro Disorders: Yes Hx Dizziness: Yes - GI Hx GI Disorders: No - Hx Genitourinary Disorders: No - ENDOCRINE Hx Endocrine Disorders: Yes Hx Thyroid Disease: Yes - MUSCULOSKELETAL Hx Musculoskeletal Disorders: No - PSYCH Hx Psych Problems: No - HEMATOLOGY/ONCOLOGY Hx Hematology/Oncology Disorders: No Family Medical History Hx Heart Disease: Father, Mother Physical Exam - General General Appearance: Alert, Oriented x3, Cooperative, Mild distress Limitations: No limitations - Head Head exam: Atraumatic, Normocephalic, Normal inspection Head exam detail: negative: Abrasion, Contusion, Kruse's sign, General tenderness, Hematoma, Laceration - Eye Eye exam: Normal appearance. negative: Conjunctival injection, Periorbital swelling, Periorbital tenderness, Scleral icterus - ENT Ear exam: negative: Auricular hematoma, Auricular trauma Nasal Exam: negative: Active bleeding, Discharge, Dried blood, Foreign body Mouth exam: negative: Drooling, Laceration, Muffled voice, Tongue elevation - Neck Neck exam: Normal inspection. negative: Meningismus, Tenderness - Respiratory Respiratory exam: Normal lung sounds bilaterally. negative: Rales, Respiratory distress, Rhonchi, Stridor - Cardiovascular Cardiovascular Exam: Regular rate, Normal rhythm, Normal heart sounds - GI/Abdominal GI/Abdominal exam: Soft, Tenderness (Mild TTP LUQ, no rebound, no guarding symptoms noted on examination.). negative: Rebound, Rigid - Rectal Rectal exam: Deferred - exam: Deferred - Extremities Extremities exam: Normal inspection. negative: Pedal edema, Tenderness - Back Back exam: Denies: CVA tenderness (R), CVA tenderness (L) - Neurological Neurological exam: Alert, Normal gait, Oriented X3 - Psychiatric Psychiatric exam: Normal affect, Normal mood - Skin Skin exam: Normal color. negative: Abrasion Type of lesion: negative: abrasion Course - Reevaluation(s) Reevaluation #1: 08/10/19 20:03 EKG: NSR 79 Normal axis, normal intervals No acute ST-T wave changes Reevaluation #2: 08/10/19 21:07 Laboratory studies were reviewed and appear grossly unremarkable for an acute process except for: Na 125 Cl 89 Reevaluation #3: 08/10/19 22:06 UA resulted: 6-10 WBCs 4+ Bacteria Rocephin ordered to infuse Reevaluation #4: 08/10/19 22:29 CT Abdomen and pelvis: Inflammatory changes LUQ, ? Omental infarction No other acute findings are identified Patient was updated on all results, as patient remains weak and dizzy with attempted ambulation, will admit for further treatment. Patient is in agreement with the plan of care as discussed. Medical Decision Making - Lab Data Result diagrams: 08/10/19 20:00 08/10/19 20:35 Disposition Disposition: Admit Clinical Impression: Pyelonephritis, Omental infarction, Weakness generalized Disposition: Still a Patient at [facility] Decision to Admit: Admit from ER Decision to Admit Date: 08/10/19 Decision to Admit Time: 22:08 Condition: (2) Stable Forms: Patient Portal Access Time of Disposition: 22:40 Quality - Quality Measures Quality Measures: N/A - Blood Pressure Screening Does Patient Have Any of the Following: No Blood Pressure Classification: Pre-Hypertensive BP Reading Systolic Measurement: 166 Diastolic Measurement: 87 Screening for High Blood Pressure: < Pre-Hypertensive BP, F/U Documented > [G8950] Pre-Hypertensive Follow-up Interventions: Referral to alternative/primary care provider.
[2019-08-10 20:10] LABS: ABSOLUTE NEUTROPHIL COUNT 5.81; BASO % 0.4 % (0-6); HEMATOCRIT 40.4 % (35.0-47.0); HEMOGLOBIN 13.6 gm/dl (11.6-16.0); LYMPH % 16.8 % (16-45); MEAN CELL VOLUME 90.8 fl (81-97); MEAN CORPUSCULAR HEMOGLOBIN 30.6 pg (27-33); MEAN CORPUSCULAR HGB CONC 33.7 g/dl (32-36); MEAN PLATELET VOLUME 9.3 fl (7.4-10.4); MONO % 5.8 % (0-9); PLATELET COUNT 316 K/uL (130-400); RED BLOOD COUNT 4.45 M/uL (3.80-5.40); RED CELL DISTRIBUTION WIDTH 13.5 % (11.5-14.5); WHITE BLOOD COUNT W/O DIFF 7.6 K/uL (4.2-12.2)
[2019-08-10 20:54] LABS: BLOOD UREA NITROGEN 12 mg/dL (8-23); CREATININE 0.5 mg/dL (0.5-0.9); EST GLOMERULAR FILTRATION RATE > 60 mL/min; LIPASE 24 U/L (13-60); TOTAL PROTEIN 6.7 g/dL (6.6-8.7)
[2019-08-10 20:56] LABS: GLUCOSE,RANDOM 106 mg/dL (74-109)
[2019-08-10 20:59] LABS: ALB/GLOB RATIO 1.8 (1.1-1.8); ALBUMIN 4.3 g/dL (4.0-5.0); ALKALINE PHOSPHATASE 62 U/L (35-104); ALT/SGPT 16 U/L (<33); AST/SGOT 25 U/L (10.0-35.0)
[2019-08-10 21:55] LABS: URINE APPEARANCE SL CLOUDY; URINE BILIRUBIN NEGATIVE (NEGATIVE); URINE BLOOD TRACE-I (NEGATIVE); URINE COLOR YELLOW; URINE GLUCOSE (UA) NEGATIVE (NEGATIVE); URINE KETONE TRACE (NEGATIVE); URINE LEUKOCYTE ESTERASE MODERATE (NEGATIVE); URINE NITRITE NEGATIVE (NEGATIVE); URINE PROTEIN NEGATIVE (NEGATIVE); URINE UROBILINOGEN 0.2 E.U./dL (0.20 - 1.00)
[2019-08-10 22:02] LABS: URINE RBC 0 - 2 (NONE SEEN)
[2019-08-10 22:03] LABS: URINE BACTERIA 4+; URINE EPITHELIAL CELLS 0 - 2 (FEW)
--- NOTE | 2019-08-10 22:22 | CT SCAN REPORT ---
EXAMINATION: CT Abdomen and Pelvis with IV Contrast EXAM DATE: 08/10/2019 9:54 PM TECHNIQUE: CT imaging of the abdomen and pelvis was performed with intravenous contrast. Coronal and sagittal images were reconstructed. IV Contrast: The amount and type of contrast are recorded in the medical record. INDICATION: LLQ abdominal pain COMPARISON: 04/21/2018 CTA chest ENCOUNTER: Not applicable CT ABDOMEN AND PELVIS FINDINGS: Lung Bases: Included extent of the lung bases are clear. Hepatobiliary: The liver has a normal size with a smooth surface. The hepatic and portal veins appear patent. Pancreas: The pancreas is normal. Spleen: The spleen is not enlarged. Adrenals: The adrenal glands are normal. Gastrointestinal: The stomach and small bowel are normal with no obstruction or inflammation. The alberto endix is not identified. There is diverticular disease involving primarily the left colon including the sigmoid segment with no associated inflammation. The large bowel is otherwise unremarkable. Reproductive Organs: The uterus is absent. Lymphatic System: There is no adenopathy within the abdomen or pelvis. Vasculature: Normal caliber abdominal aorta with mild atherosclerotic disease. Peritoneum: Suggestion of mild inflammatory changes noted in the left upper quadrant omental fat. No free fluid or free air. IMPRESSION: 1. Slight inflammatory changes noted in the left upper quadrant which could be secondary to a mild o mental infarction. Please correlate clinically. 2. No other evidence for significant acute abnormalities are present. 3. There is scattered colonic diverticula present without CT evidence of acute diverticulitis. 4. Additional findings, as above. Dictated by: Karina Schmidt MD on 08/10/2019 10:04 PM. .
[2019-08-10] MEDS ORDERED: CEFTRIAXONE 1GM/50ML BAG 1 GM/50 ML BAG IVPB ONE (22:39)
[2019-08-10] MEDS ORDERED: ACETAMINOPHEN 500 MG TABLET PO PRN (23:57)
[2019-08-10] MEDS ORDERED: CEFTRIAXONE 1GM/50ML BAG 1 GM/50 ML BAG IVPB SCH (23:57)
[2019-08-10] MEDS ORDERED: 0.9 % SODIUM CHLORIDE 1000ML 1,000 ML IV ONE (23:57)
[2019-08-11] MEDS ORDERED: WARFARIN 1 MG TABLET PO SCH ×2 (00:30→22:00)
[2019-08-11] MEDS ORDERED: WARFARIN 5 MG TAB PO SCH ×2 (00:30→22:00)
[2019-08-11] MEDS ORDERED: LEVOTHYROXINE SOD 112 MCG TAB PO SCH (07:00)
[2019-08-11] MEDS ORDERED: CEFTRIAXONE 1GM/50ML BAG 1 GM/50 ML BAG IVPB SCH ×2 (10:00→22:00)
[2019-08-11] MEDS ORDERED: FLU VAC QS 2019-20 (INPT, 6MO+) 60MCG/0.5ML IM ONE (10:00)
[2019-08-11 10:43] LABS: ABSOLUTE NEUTROPHIL COUNT 5.35; BASO % 0.5 % (0-6); EOS % 2.2 % (0-6); GRAN % 70.4 % (47-80); HEMATOCRIT 40.9 % (35.0-47.0); HEMOGLOBIN 13.7 gm/dl (11.6-16.0); LYMPH % 14.8 % (16-45); MEAN CELL VOLUME 92.7 fl (81-97); MEAN CORPUSCULAR HEMOGLOBIN 31.1 pg (27-33); MEAN CORPUSCULAR HGB CONC 33.5 g/dl (32-36); MEAN PLATELET VOLUME 9.4 fl (7.4-10.4); MONO % 12.1 % (0-9); PLATELET COUNT 307 K/uL (130-400); RED BLOOD COUNT 4.41 M/uL (3.80-5.40); RED CELL DISTRIBUTION WIDTH 13.8 % (11.5-14.5); WHITE BLOOD COUNT W/O DIFF 7.6 K/uL (4.2-12.2)
--- NOTE | 2019-08-11 10:47 | History & Physical ---
History of Present Illness - Date of Service Date of Service for History & Physical: 08/11/19 - History of Present Illness Admitting Diagnosis: Pyelonephritis. Omental infarction. Generalized weakness History of Present Illness: 74 year old female patient presented to ED for evaluation of LUQ abdominal pain, nausea, dizziness, and generalized "not feeling well". Patient reports symptoms present x 2 weeks but significantly worse over the last 2 days. Denies vomiting but reported daily nausea. Noted diarrhea 2 days ago. Patient denied fever, chills, cough, or urinary symptoms. Patient reports a medical history of hypothyroidism and PE, for which she is currently on coumadin. PCP: Dr. Galo ED Course: EKG: NSR 79, normal axis, normal intervals, no acute ST-T wave changes CBC, CMP, Troponin unremarkable, Lipase 24 UA: moderate leuk, 4+ bacteria Abd/pelvis CT: possible mild LUQ omental infarct, no other acute findings, scattered diverticula without diverticulitis IV Rocephin 08/11/19: Patient A&O x 4, resting comfortable in bed. Pain 0/10, currently asymptomatic. Ate complete breakfast tray with no nausea or vomiting. Has ambulated to bathroom several times with no symptoms. Travel Screening - Travel/Exposure Within Last 30 Days Have you traveled within the last 30 days?: No - Travel/Exposure Within Last Year Have you traveled outside the [place] in the last year?: No - Additonal Travel Details Have you been exposed to anyone with a communicable illness?: No - Travel Symptoms Symptom Screening: None Review of Systems Reviewed: No additional complaints except as noted below Constitutional: Denies: Chills, Fever, Malaise, Night sweats Eyes: Denies: Eye discharge, Eye pain ENT: Denies: Congestion, Ear pain, Epistaxis Respiratory: Denies: Cough, Dyspnea Cardiovascular: Denies: Chest pain, Dyspnea on exertion, Palpitations Endocrine: Denies: Fatigue, Heat or cold intolerance Gastrointestinal: Reports: Abdominal pain (LUQ), Nausea. Denies: Vomiting Genitourinary: Denies: Incontinence, Retention Musculoskeletal: Denies: Arthralgia, Back pain Skin: Denies: Bruising, Change in color Neurological: Reports: Weakness, Other (dizziness). Denies: Abnormal gait, Confusion, Headache, Seizure Psychiatric: Denies: Anxiety Hematological/Lymphatic: Denies: Anemia, Blood Clots Past Medical History - SOCIAL HISTORY Smoking Status: Former smoker Alcohol Use: None Drug Use: None - RESPIRATORY Hx Respiratory Disorders: Yes Hx Bronchitis: Yes (childhood) Hx Pulmonary Embolism: Yes - CARDIOVASCULAR Hx Cardio Disorders: No - NEURO Hx Neuro Disorders: Yes Hx Headaches: Yes (as a teenager) - GI Hx GI Disorders: No - Hx Genitourinary Disorders: Yes Hx Bladder Problem: Yes Hx UTI: Yes Comment:: urinary frequency especially at night - ENDOCRINE Hx Endocrine Disorders: Yes Hx Diabetes: No Hx Thyroid Disease: Yes - MUSCULOSKELETAL Hx Musculoskeletal Disorders: No Hx Arthritis: Yes - PSYCH Hx Psych Problems: No Hx Depression: Yes Feelings of Hopelessness: Yes Comment:: occasional depression/hoplessness - HEMATOLOGY/ONCOLOGY Hx Hematology/Oncology Disorders: No Family Medical History Any Significant Family History?: Yes Hx Cancer: Mother Hx Diabetes: Mother Hx Heart Disease: Mother Hx HTN: Mother Hx Seizures: Children H&P Meds/Allergies - Allergies Allergies: Allergies Allergy/AdvReac Type Severity Reaction Status Date / Time No Known Drug Allergies Allergy Verified 12/08/18 07:12 - Home Medications Home Medications Medication Instructions Recorded Confirmed Last Taken Mag Carb/Aluminum Hydrox/Algin 355 ml PO QID 08/10/19 08/10/19 08/10/19 [Gaviscon Liquid] Previous Rx's Medication Instructions Recorded Acetaminophen [Tylenol 500Mg Tab] 1,000 mg PO Q6H PRN tablet 12/09/18 - Active Medications Active Medications: Current Medications Acetaminophen (Tylenol 500mg Tab) 1,000 mg PO Q6H PRN PRN Reason: PAIN - MILD(1-4)/FEVER Sodium Chloride () 1,000 mls @ 0 mls/hr IV .Q0M [facility] Last Infusion: 08/10/19 21:28 Dose: Infused Documented by: CEFTRIAXONE 1GM/50ML BAG (Ceftriaxone 1 Gm-D5w Bag) 1 gm in 50 mls @ 100 mls/hr IVPB Q12HR [facility] Last Infusion: 08/11/19 10:25 Dose: Infused Documented by: Levothyroxine Sodium (Synthroid) 112 mcg PO DAILYTHY [facility] Last Admin: 08/11/19 06:59 Dose: 112 mcg Documented by: Warfarin Sodium (Coumadin) 5 mg PO QHS MAILE Warfarin Sodium (Coumadin) 1.5 mg PO QHS [facility] Physical Exam - Vital Signs Vital Signs: Vital Signs - Last 24 Hrs Temp Pulse Pulse Pulse Resp BP BP 08/11/19 08:43 18 08/11/19 08:00 98.0 F 72 18 133/78 08/11/19 00:00 97.7 F 79 18 151/80 08/10/19 22:19 97.8 F 75 148/82 08/10/19 21:29 71 148/82 08/10/19 21:09 71 20 152/76 08/10/19 20:07 97.7 F 76 18 166/87 Pulse Ox 08/11/19 08:43 08/11/19 08:00 95 08/11/19 00:00 98 08/10/19 22:19 08/10/19 21:29 97 08/10/19 21:09 98 08/10/19 20:07 97 - General General Appearance: Alert, Oriented x3, Cooperative, No acute distress Limitations: No limitations - Head Head exam: Atraumatic, Normocephalic, Normal inspection Head exam detail: negative: Abrasion, Contusion, Kruse's sign, General tenderness, Hematoma, Laceration - Eye Eye exam: Normal appearance, PERRL. negative: Conjunctival injection, Periorbital swelling, Periorbital tenderness, Scleral icterus - ENT ENT exam: Mucous membranes moist, Normal external ear exam Ear exam: negative: Auricular hematoma, Auricular trauma Nasal Exam: negative: Active bleeding, Discharge, Dried blood, Foreign body Mouth exam: negative: Drooling, Laceration, Muffled voice, Tongue elevation - Neck Neck exam: Normal inspection. negative: Meningismus, Tenderness - Respiratory Respiratory exam: Normal lung sounds bilaterally. negative: Rales, Respiratory distress, Rhonchi, Stridor - Cardiovascular Cardiovascular Exam: Regular rate, Normal rhythm, Normal heart sounds Peripheral Pulses: 2+: Radial (R), Radial (L), Dorsalis Pedis (R), Dorsalis Pedis (L) - GI/Abdominal GI/Abdominal exam: Soft, Normal bowel sounds. negative: Guarding, Rebound, Rigid, Tenderness - Rectal Rectal exam: Deferred - exam: Deferred - Extremities Extremities exam: Normal inspection. negative: Pedal edema, Tenderness - Back Back exam: Denies: CVA tenderness (R), CVA tenderness (L) - Neurological Neurological exam: Alert, Normal gait, Oriented X3 - Psychiatric Psychiatric exam: Normal affect, Normal mood - Skin Skin exam: Normal color. negative: Abrasion Type of lesion: negative: abrasion Results - Labs Result Diagrams: 08/10/19 20:00 08/10/19 20:35 Labs Last 24 Hours: Laboratory Results - last 24 hr 08/10/19 08/10/19 08/10/19 20:00 20:35 20:35 WBC 7.6 RBC 4.45 Hgb 13.6 Hct 40.4 MCV 90.8 MCH 30.6 MCHC 33.7 RDW 13.5 Plt Count 316 MPV 9.3 Gran % 76.0 Lymphocytes % 16.8 Monocytes % 5.8 Eosinophils % 1.0 Basophils % 0.4 Absolute Neutrophils 5.81 Sodium 125 L Potassium 3.8 Chloride 89 L Carbon Dioxide 23.0 Anion Gap 13.0 BUN 12 Creatinine 0.5 Estimated GFR > 60 Random Glucose 106 Calcium 9.0 Total Bilirubin 0.60 AST 25 ALT 16 Alkaline Phosphatase 62 Troponin T < 0.010 Total Protein 6.7 Albumin 4.3 Globulin 2.4 Albumin/Globulin Ratio 1.8 Lipase 24 Urine Color Urine Appearance Urine pH Ur Specific [place] Urine Protein Urine Glucose (UA) Urine Ketones Urine Blood Urine Nitrite Urine Bilirubin Urine Urobilinogen Ur Leukocyte Esterase Urine RBC Urine WBC Ur Epithelial Cells Urine Bacteria 08/10/19 21:05 WBC RBC Hgb Hct MCV MCH MCHC RDW Plt Count MPV Gran % Lymphocytes % Monocytes % Eosinophils % Basophils % Absolute Neutrophils Sodium Potassium Chloride Carbon Dioxide Anion Gap BUN Creatinine Estimated GFR Random Glucose Calcium Total Bilirubin AST ALT Alkaline Phosphatase Troponin T Total Protein Albumin Globulin Albumin/Globulin Ratio Lipase Urine Color Yellow Urine Appearance Sl cloudy Urine pH 8.0 Ur Specific [place] 1.010 Urine Protein Negative Urine Glucose (UA) Negative Urine Ketones Trace H Urine Blood Trace-i Urine Nitrite Negative Urine Bilirubin Negative Urine Urobilinogen 0.2 Ur Leukocyte Esterase Moderate H Urine RBC 0 - 2 Urine WBC 6 - 10 Ur Epithelial Cells 0 - 2 Urine Bacteria 4+ - Imaging and Cardiology CT scan - abdomen Status: Report reviewed VTE H&P Assessment - Risk for VTE Risk for VTE: Yes Risk Level: Moderate Risk Assessment Date: 08/11/19 Risk Assessment Time: 10:47 VTE Orders Placed or Will Be Placed: No VTE Reason for No Prophylaxis: Not Indicated (Continue coumadin therapy) Plan - Detailed Diagnosis and Plan (1) Pyelonephritis Current Visit: Yes Status: Acute Base Code: N12 - TUBULO-INTERSTITIAL NEPHRITIS, NOT SPCF ACUTE OR CHRONIC Comment: 08/11/19: -UA: moderate leuk, 4+ bacteria -Urine culture pending -Rocephin 1gm IVPB q12h -Afebrile -WBC 7.6 -NS @ 100ml/hr (2) Omental infarction Current Visit: Yes Status: Acute Base Code: K55.069 - ACUTE INFARCTION OF INTESTINE, PART AND EXTENT UNSPECIFIED Comment: 08/11/19: -Abd/pelvic CT: inflammatory changes in LUQ could represent mild omental infarct -Asymptomatic on exam today, no pain with palpation -Anticoagulated with coumadin, INR 2.0 (07/22/19) -Continue to monitor (3) DVT prophylaxis Current Visit: No Status: Acute Base Code: [id number] - Comment: 08/11/19: -Moderate risk due to age and hospitalization -Continue home coumadin regimen -INR 2.0 07/22/19 (4) Full code status Current Visit: No Status: Acute Base Code: Z78.9 - OTHER SPECIFIED HEALTH STATUS Comment: 08/11/19: -Full code status this admission
--- NOTE | 2019-08-11 11:55 | Discharge Summary ---
Providers Discharge Summary Date: 08/11/19 Date of admission: 08/10/19 23:26 Expected Date of Discharge: 08/11/19 Attending physician: SLICK AMIN Primary care physician: Ryne Galo D.O. Physical Exam - Vital Signs Vital Signs: Vital Signs - Last 24 Hrs Temp Pulse Pulse Pulse Resp BP BP 08/11/19 08:43 18 08/11/19 08:00 98.0 F 72 18 133/78 08/11/19 00:00 97.7 F 79 18 151/80 08/10/19 22:19 97.8 F 75 148/82 08/10/19 21:29 71 148/82 08/10/19 21:09 71 20 152/76 08/10/19 20:07 97.7 F 76 18 166/87 Pulse Ox 08/11/19 08:43 08/11/19 08:00 95 08/11/19 00:00 98 08/10/19 22:19 08/10/19 21:29 97 08/10/19 21:09 98 08/10/19 20:07 97 - General General Appearance: Alert, Oriented x3, Cooperative, No acute distress Limitations: No limitations - Head Head exam: Atraumatic, Normocephalic, Normal inspection Head exam detail: negative: Abrasion, Contusion, Kruse's sign, General tenderness, Hematoma, Laceration - Eye Eye exam: Normal appearance, PERRL. negative: Conjunctival injection, Periorbital swelling, Periorbital tenderness, Scleral icterus - ENT ENT exam: Mucous membranes moist, Normal external ear exam Ear exam: negative: Auricular hematoma, Auricular trauma Nasal Exam: negative: Active bleeding, Discharge, Dried blood, Foreign body Mouth exam: negative: Drooling, Laceration, Muffled voice, Tongue elevation - Neck Neck exam: Normal inspection. negative: Meningismus, Tenderness - Respiratory Respiratory exam: Normal lung sounds bilaterally. negative: Rales, Respiratory distress, Rhonchi, Stridor - Cardiovascular Cardiovascular Exam: Regular rate, Normal rhythm, Normal heart sounds Peripheral Pulses: 2+: Radial (R), Radial (L), Dorsalis Pedis (R), Dorsalis Pedis (L) - GI/Abdominal GI/Abdominal exam: Soft, Normal bowel sounds. negative: Guarding, Rebound, Rigid, Tenderness - Rectal Rectal exam: Deferred - exam: Deferred - Extremities Extremities exam: Normal inspection. negative: Pedal edema, Tenderness - Back Back exam: Denies: CVA tenderness (R), CVA tenderness (L) - Neurological Neurological exam: Alert, Normal gait, Oriented X3 - Psychiatric Psychiatric exam: Normal affect, Normal mood - Skin Skin exam: Normal color. negative: Abrasion Type of lesion: negative: abrasion Hospitalization - Hospitalization Admission Diagnosis: Pyelonephritis. Omental infarction. Generalized weakness - Problem List/Discharge Diagnosis (1) Pyelonephritis Current Visit: Yes Status: Acute Base Code: N12 - TUBULO-INTERSTITIAL NEPHRITIS, NOT SPCF ACUTE OR CHRONIC Comment: 08/11/19: -UA: moderate leuk, 4+ bacteria -Urine culture pending -Rocephin 1gm IVPB q12h -Afebrile this admission -WBC 7.6 -Has tolerated PO intake -DC with Cipro 500mg BID x 7 days (2) Omental infarction Current Visit: Yes Status: Acute Base Code: K55.069 - ACUTE INFARCTION OF INTESTINE, PART AND EXTENT UNSPECIFIED Comment: 08/11/19: -Abd/pelvic CT: inflammatory changes in LUQ could represent mild omental infarct -Asymptomatic on exam today, no pain with palpation -Anticoagulated with coumadin, INR 2.0 (07/22/19) (3) DVT prophylaxis Current Visit: No Status: Acute Base Code: [id number] - Comment: 08/11/19: -Moderate risk due to age and hospitalization -Continue home coumadin regimen -INR 2.0 07/22/19 (4) Full code status Current Visit: No Status: Acute Base Code: Z78.9 - OTHER SPECIFIED HEALTH STATUS Comment: 08/11/19: -Full code status this admission - Hospitalization Course Disposition: Home, Self-Care Hospital Course: 74 year old female patient presented to ED for evaluation of LUQ abdominal pain, nausea, dizziness, and generalized "not feeling well". Patient reports symptoms present x 2 weeks but significantly worse over the last 2 days. Denies vomiting but reported daily nausea. Noted diarrhea 2 days ago. Patient denied fever, chills, cough, or urinary symptoms. Patient reports a medical history of hypothyroidism and PE, for which she is currently on coumadin. PCP: Dr. Galo ED Course: EKG: NSR 79, normal axis, normal intervals, no acute ST-T wave changes CBC, CMP, Troponin unremarkable, Lipase 24 UA: moderate leuk, 4+ bacteria Abd/pelvis CT: possible mild LUQ omental infarct, no other acute findings, scattered diverticula without diverticulitis IV Rocephin 08/11/19: Patient A&O x 4, resting comfortable in bed. Pain 0/10, currently asymptomatic. Ate complete breakfast tray with no nausea or vomiting. Has ambulated to bathroom several times with no symptoms. UPDATE: has tolerated PO intake, remains asymptomatic. Will dc home with cipro 500mg BID x 7 days and follow-up with PCP. Procedures: Imaging and X-Rays 08/10/19 19:58 ABDOMEN/PELVIS W CONTRAST [CT] Stat Cardiology Procedures 08/10/19 19:54 EKG NOW Abnormal Labs: Abnormal Lab Results 08/10/19 08/10/19 08/11/19 Range/Units 20:35 21:05 10:37 Lymphocytes % 14.8 L (16-45) % Monocytes % 12.1 H (0-9) % Sodium 125 L (136-145) mmol/L Chloride 89 L (98-107) mmol/L Urine Ketones Trace H (NEGATIVE) Ur Leukocyte Esterase Moderate H (NEGATIVE) Condition at Discharge: (2) Stable Discharge Medications - Discharge Medications Prescriptions: Cefdinir [Omnicef] 300 mg PO BID 7 Days #14 cap Home Medications: Ambulatory Orders Levothyroxine Sodium 112 mcg PO QAM 12/08/18 [Last Taken 08/10/19] Warfarin Sodium 6.5 mg PO QHS 12/08/18 [Last Taken 08/09/19] Acetaminophen [Tylenol 500Mg Tab] 1,000 mg PO Q6H PRN tablet 12/09/18 [Last Taken 08/10/19] Ascorbic Acid [Vitamin C] 1,000 mg PO DAILY 07/09/19 [Last Taken 08/10/19] Ca/D3/Mag Ox/Zinc/Animal Pathology Teacher/Sergio/Bor [Calcium 600-D3 Plus Caplet] 1 tab PO DAILY 07/09/19 [Last Taken 08/10/19] Ubidecarenone [Co Q-10] 100 mg PO DAILY 07/09/19 [Last Taken 08/10/19] Mag Carb/Aluminum Hydrox/Algin [Gaviscon Liquid] 355 ml PO QID 08/10/19 [Last Taken 08/10/19] Cefdinir [Omnicef] 300 mg PO BID 7 Days #14 cap 08/11/19 [Last Taken Unknown] Discharge Plan - Discharge Instructions Activity at Discharge: Increase Activity as Tolerated Diet at Discharge: Advance to Usual Diet Additional Instructions: -Start your antibiotic today, taking just one dose today, then increase to 2 doses a day until the antibiotic is completed. -Have your INR rechecked on Friday, as antibiotics can affect this -Follow-up with your PCP in 10-14 days Quality Measures - Quality Measures Quality Measures: Advance Directives, Documentation of Current Medications in Medical Record, Elder Maltreatment Screen and Follow-Up Plan, Screening for High Blood Pressure and F/U Documented - Current Medications Quality Measure: Measure #130: Documentation of Current Medications Documentation of Current Medications: <Current Medications Documented/Reviewed> [K7935] - Blood Pressure Screening Quality Measure: Screening for High Blood Pressure and Follow-Up Documented Does Patient Have Any of the Following: No Blood Pressure Classification: Pre-Hypertensive BP Reading Systolic Measurement: 166 Diastolic Measurement: 87 Screening for High Blood Pressure: < Pre-Hypertensive BP, F/U Documented > [D3694] Pre-Hypertensive Follow-up Interventions: Referral to alternative/primary care provider. - Advance Directives Quality Measure: Measure #47: Care Plan Advance Directives Established: No (Informational pamphlet given to patient.) Advance Directives Information Provided To Patient: No Advance Directives on File: No Living Will: No Power of Promos Executive Producer: No Advance Care Planning: <Care Plan/Decision Maker Not Decided; Discussed & Documented> [8105M] - Elder Abuse Suspicion Index Screening: Elder Abuse Suspicion Index Screening Rely on people for bathing, dressing, shopping, banking, etc: No Prevented from getting food, clothes, medication, etc: No Made to feel shamed or threatened by someone: No Forced to sign papers or use money against will: No Feel afraid, touched in ways not wanted or hurt physically: No Poor eye contact, withdrawn, malnourished, cuts or bruises: No Screening Result: Negative result EASI Reference Information: Alannah DIAS, Freda C, Ehsan D, Paul Gaytan.Development and validation of a tool to assist physicians identification of elder abuse: The Elder Abuse Suspicion Index (EASI ). Journal of Elder Abuse and Neglect, 2008; 20 (3): 276-300. - Elder Maltreatment Screen Quality Measures: Elder Maltreatment Screen and Follow-Up Plan Elder Maltreatment Screen: <Negative, No Follow-Up Plan Required> [G8734]
== END 2019-08-11 13:10 | disposition home or self-care (01) ==
LOC: ER 19:51 → MEDSURG 23:26
PROVIDERS: ADMIT Internal Medicine; ATTEND Internal Medicine
DX: N12 Tubulo-interstitial nephritis, not specified as acute or chronic (principal); K55.069 Acute infarction of intestine, part and extent unspecified; R53.1 Weakness; R42 Dizziness and giddiness; R00.2 Palpitations; R11.0 Nausea; R19.7 Diarrhea, unspecified; E03.9 Hypothyroidism, unspecified; Z79.01 Long term (current) use of anticoagulants; R35.0 Frequency of micturition; Z23 Encounter for immunization; Z87.891 Personal history of nicotine dependence; Z90.49 Acquired absence of other specified parts of digestive tract; Z86.711 Personal history of pulmonary embolism
CPT/HCPCS: 74177; 80053; 81001; 83690; 84484; 85025; 90686; 93005; 93010; 96365; 96374; 99220; 99285; J0696; J2405; J7030

== ENCOUNTER 2019-08-26 17:45 | Observation (INO) | payer MEDICARE ==
[2019-08-26] MEDS ORDERED: 0.9 % SODIUM CHLORIDE 1000ML 1,000 ML IV ONE ×2 (17:57→21:23)
--- NOTE | 2019-08-26 18:02 | Emergency Department Record ---
History of Present Illness - General Chief Complaint: Female Urogenital Problem Stated Complaint: CHILLS Time Seen by Provider: 08/26/19 17:51 Source: Patient, Family Mode of Arrival: Ambulatory Limitations: No limitations - History of Present Illness Initial comments: 74 yo female presents with weakness and chills throughout the day. She states she feels shaky and tired. She states she finished a course of antibiotics one week ago for a urinary tract infection. She denies headache, sore throat, cough, chest pain, abdominal pain. No vomiting but she does have nausea. No diarrhea. No abdominal pain. Her family noticed some confusion and trouble concentrating at times. She completed a course of Cefdinir. Urine Culture from 08/10/19 demonstrated dangelo sensitive E. coli >100,000 CFU. -: Days(s) (1) Location: Other Radiation: Other (Nausea no pain) Quality: Other (shaky) Consistency: Constant Improves with: None Worsens with: None Associated Symptoms: Nausea/vomiting - [place] Coma Scale Eye Response: (4) Open spontaneously Motor Response: (6) Obeys commands Verbal Response: (5) Oriented Avtar Total: 15 - Related Data Previous Rx's Medication Instructions Recorded Acetaminophen [Tylenol 500Mg Tab] 1,000 mg PO Q6H PRN tablet 12/09/18 Allergies Allergy/AdvReac Type Severity Reaction Status Date / Time No Known Drug Allergies Allergy Verified 12/08/18 07:12 Travel Screening - Travel/Exposure Within Last 30 Days Have you traveled within the last 30 days?: No - Travel/Exposure Within Last Year Have you traveled outside the [place] in the last year?: No - Additonal Travel Details Have you been exposed to anyone with a communicable illness?: No - Travel Symptoms Symptom Screening: Chills Review of Systems Constitutional: Reports: Chills, Malaise, Weakness Eyes: Denies: Eye discharge, Eye pain, Photophobia, Vision change ENT: Denies: Congestion, Throat pain Respiratory: Denies: Cough, Dyspnea, Hemoptysis, Stridor, Wheezes Cardiovascular: Denies: Chest pain, Palpitations, Syncope Endocrine: Reports: Fatigue. Denies: Polydipsia, Polyuria Gastrointestinal: Reports: Nausea. Denies: Abdominal pain, Diarrhea, Vomiting Genitourinary: Denies: Dysuria, Frequency, Incontinence Musculoskeletal: Denies: Arthralgia, Back pain, Neck pain Skin: Denies: Bruising, Change in color, Rash Neurological: Reports: Confusion (at times per family), Weakness. Denies: Abnormal gait, Headache, Numbness, Paresthesias, Seizure, Tingling, Tremors, Vertigo Psychiatric: Denies: Anxiety Hematological/Lymphatic: Denies: Anemia, Blood Clots, Easy bleeding, Easy bruising Past Medical History - SOCIAL HISTORY Smoking Status: Former smoker - RESPIRATORY Hx Respiratory Disorders: Yes Hx Bronchitis: Yes (childhood) Hx Pulmonary Embolism: Yes - CARDIOVASCULAR Hx Cardio Disorders: No - NEURO Hx Neuro Disorders: Yes Hx Headaches: Yes (as a teenager) - GI Hx GI Disorders: No Hx Abdominal Pain: Yes - Hx Genitourinary Disorders: Yes Hx Bladder Problem: Yes Hx UTI: Yes Comment:: urinary frequency especially at night - ENDOCRINE Hx Endocrine Disorders: Yes Hx Diabetes: No Hx Thyroid Disease: Yes - MUSCULOSKELETAL Hx Musculoskeletal Disorders: No Hx Arthritis: Yes - PSYCH Hx Psych Problems: No Hx Depression: Yes Comment:: occasional depression/hoplessness - HEMATOLOGY/ONCOLOGY Hx Hematology/Oncology Disorders: No Family Medical History Any Significant Family History?: Yes Hx Cancer: Mother Hx Diabetes: Mother Hx Heart Disease: Mother Hx HTN: Mother Hx Seizures: Children Physical Exam - General General Appearance: Alert, Oriented x3, Cooperative, No acute distress Limitations: No limitations - Head Head exam: Atraumatic, Normal inspection - Eye Eye exam: Normal appearance, PERRL. negative: Conjunctival injection, Scleral icterus - ENT ENT exam: Normal exam, Mucous membranes moist Ear exam: Normal external inspection Nasal Exam: Normal inspection Mouth exam: Normal external inspection Teeth exam: Normal inspection Throat exam: Normal inspection - Neck Neck exam: Normal inspection, Full ROM. negative: Tenderness - Respiratory Respiratory exam: Normal lung sounds bilaterally. negative: Respiratory distress - Cardiovascular Cardiovascular Exam: Regular rate, Normal rhythm, Normal heart sounds Peripheral Pulses: 2+: Radial (R), Radial (L) - GI/Abdominal GI/Abdominal exam: Soft. negative: Distended, Guarding, Tenderness - Rectal Rectal exam: Deferred - exam: Deferred - Extremities Extremities exam: Normal inspection. negative: Calf tenderness, Pedal edema, Tenderness - Back Back exam: Denies: CVA tenderness (R), CVA tenderness (L) - Neurological Neurological exam: Alert, Oriented X3 - Psychiatric Psychiatric exam: Normal affect, Normal mood - Skin Skin exam: Dry, Intact, Normal color, Warm Course Vitals reviewed No significant abnormalities - Reevaluation(s) Reevaluation #1: 08/26/19 18:23 The CBC was reviewed No acute abnormalities 08/26/19 18:31 INR is 2.6 08/26/19 18:39 The CMP was reviewed Na is 125 08/26/19 18:55 UA is negative Given she is symptomatic with a low sodium I recommend OBV and recheck labs in the AM. 08/26/19 18:58 The patient admits to significant water due to a recent UTI Free water will be withheld, gentle NS hydration and recheck labs The case was discussed with Katheryn Zuñiga BRAIDER SETTER for admit Medical Decision Making - Lab Data Result diagrams: 08/26/19 18:00 08/26/19 18:02 Disposition Disposition: Admit Clinical Impression: Hyponatremia Disposition: Still a Patient at [facility] Decision to Admit: Admit from ER Decision to Admit Date: 08/26/19 Decision to Admit Time: 19:00 Condition: (1) Good Forms: Patient Portal Access Time of Disposition: 19:01 Quality - Quality Measures Quality Measures: N/A - Blood Pressure Screening Does Patient Have Any of the Following: No Blood Pressure Classification: Hypertensive Reading Systolic Measurement: 166 Diastolic Measurement: 76 Screening for High Blood Pressure: < Pre-Hypertensive BP, F/U Documented > [G8950] Pre-Hypertensive Follow-up Interventions: Referral to alternative/primary care provider.
[2019-08-26 18:19] LABS: ABSOLUTE NEUTROPHIL COUNT 4.56; BASO % 0.6 % (0-6); EOS % 1.6 % (0-6); GRAN % 73.1 % (47-80); HEMATOCRIT 40.9 % (35.0-47.0); HEMOGLOBIN 13.7 gm/dl (11.6-16.0); LYMPH % 17.6 % (16-45); MEAN CELL VOLUME 90.7 fl (81-97); MEAN CORPUSCULAR HEMOGLOBIN 30.4 pg (27-33); MEAN CORPUSCULAR HGB CONC 33.5 g/dl (32-36); MEAN PLATELET VOLUME 9.7 fl (7.4-10.4); MONO % 7.1 % (0-9); PLATELET COUNT 335 K/uL (130-400); RED BLOOD COUNT 4.51 M/uL (3.80-5.40); RED CELL DISTRIBUTION WIDTH 13.8 % (11.5-14.5); WHITE BLOOD COUNT W/O DIFF 6.2 K/uL (4.2-12.2)
[2019-08-26 18:30] LABS: BLOOD UREA NITROGEN 8 mg/dL (8-23); CREATININE 0.4 mg/dL (0.5-0.9); EST GLOMERULAR FILTRATION RATE > 60 mL/min; INR 2.6; PARTIAL THROMBOPLASTIN TIME 49.9 SECONDS (24.5-39.1); PROTHROMBIN TIME (PATIENT) 25.1 SECONDS (9.5-12.1)
[2019-08-26 18:31] LABS: TOTAL PROTEIN 7.6 g/dL (6.6-8.7)
[2019-08-26 18:33] LABS: GLUCOSE,RANDOM 105 mg/dL (74-109)
[2019-08-26 18:36] LABS: ALB/GLOB RATIO 1.5 (1.1-1.8); ALBUMIN 4.6 g/dL (4.0-5.0); ALKALINE PHOSPHATASE 71 U/L (35-104); ALT/SGPT 24 U/L (<33); AST/SGOT 35 U/L (10.0-35.0)
[2019-08-26 18:41] LABS: URINE APPEARANCE CLEAR; URINE BILIRUBIN NEGATIVE (NEGATIVE); URINE BLOOD TRACE-I (NEGATIVE); URINE COLOR YELLOW; URINE GLUCOSE (UA) NEGATIVE (NEGATIVE); URINE KETONE TRACE (NEGATIVE); URINE LEUKOCYTE ESTERASE NEGATIVE (NEGATIVE); URINE NITRITE NEGATIVE (NEGATIVE); URINE PROTEIN NEGATIVE (NEGATIVE); URINE UROBILINOGEN 0.2 E.U./dL (0.20 - 1.00)
[2019-08-26 18:53] LABS: URINE EPITHELIAL CELLS 0 - 2 (FEW); URINE RBC 0 - 2 (NONE SEEN); URINE WBC 0 - 2 (0-2/hpf)
[2019-08-26] MEDS ORDERED: WARFARIN 5 MG TAB PO SCH (22:00)
[2019-08-26] MEDS ORDERED: WARFARIN 1 MG TABLET PO SCH (22:00)
[2019-08-27 07:11] LABS: BLOOD UREA NITROGEN 7 mg/dL (8-23); CREATININE 0.5 mg/dL (0.5-0.9); EST GLOMERULAR FILTRATION RATE > 60 mL/min; GLUCOSE,RANDOM 83 mg/dL (74-109)
--- NOTE | 2019-08-27 08:16 | History & Physical ---
History of Present Illness - Date of Service Date of Service for History & Physical: 08/27/19 - History of Present Illness Admitting Diagnosis: Hyponatremia History of Present Illness: 74 yo female presents with weakness and chills throughout the day. She states she feels shaky and tired. She states she finished a course of antibiotics one week ago for a urinary tract infection. She denies headache, sore throat, cough, chest pain, abdominal pain. No vomiting but she does have nausea. No diarrhea. No abdominal pain. Her family noticed some confusion and trouble concentrating at times. She completed a course of Cefdinir. Urine Culture from 08/10/19 demonstrated dangelo sensitive E. coli >100,000 CFU. Travel Screening - Travel/Exposure Within Last 30 Days Have you traveled within the last 30 days?: No - Travel/Exposure Within Last Year Have you traveled outside the [place] in the last year?: No - Additonal Travel Details Have you been exposed to anyone with a communicable illness?: No - Travel Symptoms Symptom Screening: None Review of Systems Constitutional: Reports: Chills, Malaise, Weakness Eyes: Denies: Eye discharge, Eye pain, Photophobia, Vision change ENT: Denies: Congestion, Throat pain Respiratory: Denies: Cough, Dyspnea, Hemoptysis, Stridor, Wheezes Cardiovascular: Denies: Chest pain, Palpitations, Syncope Endocrine: Reports: Fatigue. Denies: Polydipsia, Polyuria Gastrointestinal: Reports: Nausea. Denies: Abdominal pain, Diarrhea, Vomiting Genitourinary: Denies: Dysuria, Frequency, Incontinence Musculoskeletal: Denies: Arthralgia, Back pain, Neck pain Skin: Denies: Bruising, Change in color, Rash Neurological: Reports: Confusion (at times per family), Weakness. Denies: Abnormal gait, Headache, Numbness, Paresthesias, Seizure, Tingling, Tremors, Vertigo Psychiatric: Denies: Anxiety Hematological/Lymphatic: Denies: Anemia, Blood Clots, Easy bleeding, Easy bruising Past Medical History - SOCIAL HISTORY Smoking Status: Former smoker Alcohol Use: None Drug Use: None - RESPIRATORY Hx Respiratory Disorders: Yes Hx Bronchitis: Yes (childhood) Hx Pulmonary Embolism: Yes - CARDIOVASCULAR Hx Cardio Disorders: No - NEURO Hx Neuro Disorders: Yes Hx Headaches: Yes (as a teenager) - GI Hx GI Disorders: Yes Hx Abdominal Pain: Yes (endoscopy ) Comment:: nausea - Hx Genitourinary Disorders: Yes Hx Bladder Problem: Yes Hx UTI: Yes Comment:: urinary frequency especially at night - ENDOCRINE Hx Endocrine Disorders: Yes Hx Diabetes: No Hx Thyroid Disease: Yes - MUSCULOSKELETAL Hx Musculoskeletal Disorders: Yes Hx Arthritis: Yes - PSYCH Hx Psych Problems: Yes Hx Depression: Yes Comment:: occasional depression/hoplessness - HEMATOLOGY/ONCOLOGY Hx Hematology/Oncology Disorders: No Family Medical History Any Significant Family History?: Yes Hx Cancer: Mother Hx Diabetes: Mother Hx Heart Disease: Mother Hx HTN: Mother Hx Seizures: Children H&P Meds/Allergies - Allergies Allergies: Allergies Allergy/AdvReac Type Severity Reaction Status Date / Time No Known Drug Allergies Allergy Verified 12/08/18 07:12 - Home Medications Previous Rx's Medication Instructions Recorded Acetaminophen [Tylenol 500Mg Tab] 1,000 mg PO Q6H PRN tablet 12/09/18 - Active Medications Active Medications: Current Medications Warfarin Sodium (Coumadin) 5 mg PO QHS [facility] Last Admin: 08/26/19 22:04 Dose: 5 mg Documented by: Warfarin Sodium (Coumadin) 1.5 mg PO QHS [facility] Last Admin: 08/26/19 22:04 Dose: 1.5 mg Documented by: Physical Exam - Vital Signs Vital Signs: Vital Signs - Last 24 Hrs Temp Pulse Pulse Resp BP BP Pulse Ox 08/27/19 05:23 97.2 F L 76 18 142/73 95 08/26/19 20:55 97.5 F L 69 16 156/76 98 08/26/19 19:28 98.3 F 72 20 131/79 97 08/26/19 17:57 98.1 F 81 20 166/76 99 - General General Appearance: Alert, Oriented x3, Cooperative, No acute distress Limitations: No limitations - Head Head exam: Atraumatic, Normal inspection - Eye Eye exam: Normal appearance, PERRL. negative: Conjunctival injection, Scleral icterus - ENT ENT exam: Normal exam, Mucous membranes moist Ear exam: Normal external inspection Nasal Exam: Normal inspection Mouth exam: Normal external inspection Teeth exam: Normal inspection Throat exam: Normal inspection - Neck Neck exam: Normal inspection, Full ROM. negative: Tenderness - Respiratory Respiratory exam: Normal lung sounds bilaterally. negative: Respiratory distress - Cardiovascular Cardiovascular Exam: Regular rate, Normal rhythm, Normal heart sounds Peripheral Pulses: 2+: Radial (R), Radial (L) - GI/Abdominal GI/Abdominal exam: Soft. negative: Distended, Guarding, Tenderness - Rectal Rectal exam: Deferred - exam: Deferred - Extremities Extremities exam: Normal inspection. negative: Calf tenderness, Pedal edema, Tenderness - Back Back exam: Denies: CVA tenderness (R), CVA tenderness (L) - Neurological Neurological exam: Alert, Oriented X3 - Psychiatric Psychiatric exam: Normal affect, Normal mood - Skin Skin exam: Dry, Intact, Normal color, Warm Results - Labs Result Diagrams: 08/26/19 18:00 08/27/19 06:21 Labs Last 24 Hours: Laboratory Results - last 24 hr 08/26/19 08/26/19 08/26/19 18:00 18:02 18:02 WBC 6.2 RBC 4.51 Hgb 13.7 Hct 40.9 MCV 90.7 MCH 30.4 MCHC 33.5 RDW 13.8 Plt Count 335 MPV 9.7 Gran % 73.1 Lymphocytes % 17.6 Monocytes % 7.1 Eosinophils % 1.6 Basophils % 0.6 Absolute Neutrophils 4.56 PT 25.1 H INR 2.6 APTT 49.9 H Sodium 125 L Potassium 3.5 Chloride 88 L Carbon Dioxide 22.0 Anion Gap 15.0 BUN 8 Creatinine 0.4 L Estimated GFR > 60 Random Glucose 105 Calcium 9.6 Total Bilirubin 0.80 AST 35 ALT 24 Alkaline Phosphatase 71 Total Protein 7.6 Albumin 4.6 Globulin 3.0 Albumin/Globulin Ratio 1.5 Urine Color Urine Appearance Urine pH Ur Specific [place] Urine Protein Urine Glucose (UA) Urine Ketones Urine Blood Urine Nitrite Urine Bilirubin Urine Urobilinogen Ur Leukocyte Esterase Urine RBC Urine WBC Ur Epithelial Cells 08/26/19 08/27/19 18:11 06:21 WBC RBC Hgb Hct MCV MCH MCHC RDW Plt Count MPV Gran % Lymphocytes % Monocytes % Eosinophils % Basophils % Absolute Neutrophils PT INR APTT Sodium 137 Potassium 3.3 L Chloride 103 Carbon Dioxide 23.0 Anion Gap 11.0 BUN 7 L Creatinine 0.5 Estimated GFR > 60 Random Glucose 83 Calcium 8.5 L Total Bilirubin AST ALT Alkaline Phosphatase Total Protein Albumin Globulin Albumin/Globulin Ratio Urine Color Yellow Urine Appearance Clear Urine pH 7.5 Ur Specific [place] 1.010 Urine Protein Negative Urine Glucose (UA) Negative Urine Ketones Trace H Urine Blood Trace-i Urine Nitrite Negative Urine Bilirubin Negative Urine Urobilinogen 0.2 Ur Leukocyte Esterase Negative Urine RBC 0 - 2 Urine WBC 0 - 2 Ur Epithelial Cells 0 - 2
[2019-08-27] MEDS ORDERED: LEVOTHYROXINE SOD 112 MCG TAB PO ONE (10:15)
--- NOTE | 2019-08-27 10:31 | Discharge Summary ---
Providers Discharge Summary Date: 08/27/19 Date of admission: 08/26/19 19:44 Attending physician: SLICK AMIN Primary care physician: Ryne Galo D.O. Physical Exam - Vital Signs Vital Signs: Vital Signs - Last 24 Hrs Temp Pulse Pulse Pulse Resp BP BP 08/27/19 08:52 98 F 76 14 128/74 08/27/19 05:23 97.2 F L 76 18 142/73 08/26/19 20:55 97.5 F L 69 16 156/76 08/26/19 19:28 98.3 F 72 20 131/79 08/26/19 17:57 98.1 F 81 20 166/76 Pulse Ox 08/27/19 08:52 96 08/27/19 05:23 95 08/26/19 20:55 98 08/26/19 19:28 97 08/26/19 17:57 99 - General General Appearance: Alert, Oriented x3, Cooperative, No acute distress Limitations: No limitations - Head Head exam: Atraumatic, Normal inspection - Eye Eye exam: Normal appearance, PERRL. negative: Conjunctival injection, Scleral icterus - ENT ENT exam: Normal exam, Mucous membranes moist Ear exam: Normal external inspection Nasal Exam: Normal inspection Mouth exam: Normal external inspection Teeth exam: Normal inspection Throat exam: Normal inspection - Neck Neck exam: Normal inspection, Full ROM. negative: Tenderness - Respiratory Respiratory exam: Normal lung sounds bilaterally. negative: Respiratory distress - Cardiovascular Cardiovascular Exam: Regular rate, Normal rhythm, Normal heart sounds Peripheral Pulses: 2+: Radial (R), Radial (L) - GI/Abdominal GI/Abdominal exam: Soft. negative: Distended, Guarding, Tenderness - Rectal Rectal exam: Deferred - exam: Deferred - Extremities Extremities exam: Normal inspection. negative: Calf tenderness, Pedal edema, Tenderness - Back Back exam: Denies: CVA tenderness (R), CVA tenderness (L) - Neurological Neurological exam: Alert, Oriented X3 - Psychiatric Psychiatric exam: Normal affect, Normal mood - Skin Skin exam: Dry, Intact, Normal color, Warm Hospitalization - Hospitalization Admission Diagnosis: Hyponatremia - Problem List/Discharge Diagnosis (1) Hyponatremia Status: Acute Base Code: E87.1 - HYPO-OSMOLALITY AND HYPONATREMIA Comment: 08/27/19 - Na in ED 125-->137 - Gentle IV hydration with 0.9 NS - Likely etiolgy from over PO water hydration (2) DVT prophylaxis Status: Acute Base Code: [id number] - Comment: 08/27/19: -Moderate risk due to age and hospitalization -Continue home coumadin regimen -INR 2.6 08/26/19 (3) Full code status Status: Acute Base Code: Z78.9 - OTHER SPECIFIED HEALTH STATUS Comment: 08/27/19 -Full code status this admission - Hospitalization Course Disposition: Home, Self-Care Hospital Course: 74 yo female presents with weakness and chills throughout the day. She states she feels shaky and tired. She states she finished a course of antibiotics one week ago for a urinary tract infection. She denies headache, sore throat, cough, chest pain, abdominal pain. No vomiting but she does have nausea. No diarrhea. No abdominal pain. Her family noticed some confusion and trouble concentrating at times. She completed a course of Cefdinir. Urine Culture from 08/10/19 demonstrated dangelo sensitive E. coli >100,000 CFU. Patient did report was drinking a lot of water to help clear her previous UTI and thinks she may be drinking too much. Past medical history includes former smoker, bronchitis, PE, headaches, hypothyroid, nocturnal urinary frequency, depression. While in ED CBC unremarkable, INR 2.6, Na 125, potassium 3.5, U/A negative except ketones. She was admitted for IV sodium replacement and observation. 08/27/19- Resting in bed comfortably, denies any complaint. Nursing reports has been ambulating without difficulty, no complaints of weakness, has been alert and oriented. Observation period has been unremarkable. She has returned to baseline cognition and physical function. Blood cultures were drawn and pending due to initial confusion. She has remained afebrile during stay. Will send home with potassium supplementation with recheck of labs in 1 week Procedures: Cardiology Procedures 08/26/19 17:55 Consumer Loan Underwriter NOW Abnormal Labs: Abnormal Lab Results 08/26/19 08/26/19 08/26/19 Range/Units 18:02 18:02 18:11 PT 25.1 H (9.5-12.1) SECONDS APTT 49.9 H (24.5-39.1) SECONDS Sodium 125 L (136-145) mmol/L Potassium (3.4-4.5) mmol/L Chloride 88 L (98-107) mmol/L BUN (8-23) mg/dL Creatinine 0.4 L (0.5-0.9) mg/dL Calcium (8.8-10.2) mg/dL Urine Ketones Trace H (NEGATIVE) 08/27/19 Range/Units 06:21 PT (9.5-12.1) SECONDS APTT (24.5-39.1) SECONDS Sodium (136-145) mmol/L Potassium 3.3 L (3.4-4.5) mmol/L Chloride (98-107) mmol/L BUN 7 L (8-23) mg/dL Creatinine (0.5-0.9) mg/dL Calcium 8.5 L (8.8-10.2) mg/dL Urine Ketones (NEGATIVE) Condition at Discharge: (1) Good Discharge Medications - Discharge Medications Prescriptions: Potassium Chloride [Klor-Con] 10 meq PO DAILY #30 tablet.sa Home Medications: Ambulatory Orders Levothyroxine Sodium 112 mcg PO QAM 12/08/18 [Last Taken 08/10/19] Warfarin Sodium 6.5 mg PO QHS 12/08/18 [Last Taken 08/09/19] Acetaminophen [Tylenol 500Mg Tab] 1,000 mg PO Q6H PRN tablet 12/09/18 [Last Taken 08/10/19] Ascorbic Acid [Vitamin C] 1,000 mg PO DAILY 07/09/19 [Last Taken 08/10/19] Ca/D3/Mag Ox/Zinc/Flow Coordinator/Sergio/Bor [Calcium 600-D3 Plus Caplet] 1 tab PO DAILY 07/09/19 [Last Taken 08/10/19] Ubidecarenone [Co Q-10] 100 mg PO DAILY 07/09/19 [Last Taken 08/10/19] Mag Carb/Aluminum Hydrox/Algin [Gaviscon Liquid] 355 ml PO QID 08/10/19 [Last Taken 08/10/19] Potassium Chloride [Klor-Con] 10 meq PO DAILY #30 tablet.sa 08/27/19 [Last Taken Unknown] Discharge Plan - Discharge Instructions Activity at Discharge: Increase Activity as Tolerated Diet at Discharge: Advance to Usual Diet Instructions: Hyponatremia (DC), Non-diabetic Hypoglycemia (DC) Additional Instructions: Do not drink any more than 1/2 of your body weight in ounces of water daily Your potassium was low, new prescription for potassium supplement sent to pharmacy, have your blood drawn in 1 week Follow up with PCP in 1 week Quality Measures - Quality Measures Quality Measures: Advance Directives, Documentation of Current Medications in Medical Record, Elder Maltreatment Screen and Follow-Up Plan, Screening for High Blood Pressure and F/U Documented - Current Medications Quality Measure: Measure #130: Documentation of Current Medications Documentation of Current Medications: <Current Medications Documented/Reviewed> [G7267] - Blood Pressure Screening Quality Measure: Screening for High Blood Pressure and Follow-Up Documented Does Patient Have Any of the Following: No Blood Pressure Classification: Pre-Hypertensive BP Reading Systolic Measurement: 128 Diastolic Measurement: 74 Screening for High Blood Pressure: < Pre-Hypertensive BP, F/U Documented > [G8950] Pre-Hypertensive Follow-up Interventions: Follow-up with rescreen every year. - Advance Directives Quality Measure: Measure #47: Care Plan Advance Directives Established: No (Informational pamphlet given to patient.) Advance Directives Information Provided To Patient: No Advance Directives on File: No Living Will: No Power of Medical Registrar: No Advance Care Planning: <Care Plan/Decision Maker Documented; Discussed & Documented> [[id number]] - Elder Abuse Suspicion Index Screening: Elder Abuse Suspicion Index Screening Rely on people for bathing, dressing, shopping, banking, etc: No Prevented from getting food, clothes, medication, etc: No Made to feel shamed or threatened by someone: No Forced to sign papers or use money against will: No Feel afraid, touched in ways not wanted or hurt physically: No Poor eye contact, withdrawn, malnourished, cuts or bruises: No Screening Result: Negative result EASI Reference Information: Alannah DIAS, Freda C, Ehsan D, Paul M.Development and validation of a tool to assist physicians identification of elder abuse: The Elder Abuse Suspicion Index (EASI ). Journal of Elder Abuse and Neglect, 2008; 20 (3): 276-300. - Elder Maltreatment Screen Quality Measures: Elder Maltreatment Screen and Follow-Up Plan Elder Maltreatment Screen: <Negative, No Follow-Up Plan Required> [G8734]
--- NOTE | 2019-08-27 13:29 | History & Physical ---
History of Present Illness - Date of Service Date of Service for History & Physical: 08/27/19 - History of Present Illness Admitting Diagnosis: Hyponatremia History of Present Illness: 74 yo female presents with weakness and chills throughout the day. She states she feels shaky and tired. She states she finished a course of antibiotics one week ago for a urinary tract infection. She denies headache, sore throat, cough, chest pain, abdominal pain. No vomiting but she does have nausea. No diarrhea. No abdominal pain. Her family noticed some confusion and trouble concentrating at times. She completed a course of Cefdinir. Urine Culture from 08/10/19 demonstrated dangelo sensitive E. coli >100,000 CFU. Patient did report was drinking a lot of water to help clear her previous UTI and thinks she may be drinking too much. Past medical history includes former smoker, bronchitis, PE, headaches, hypothyroid, nocturnal urinary frequency, depression. While in ED CBC unremarkable, INR 2.6, Na 125, U/A negative. She was admitted for IV sodium replacement and observation. 08/27/19- Resting in bed comfortably, denies any complaint. Nursing reports has been ambulating without difficulty, no complaints of weakness, has been alert and oriented Travel Screening - Travel/Exposure Within Last 30 Days Have you traveled within the last 30 days?: No - Travel/Exposure Within Last Year Have you traveled outside the [place] in the last year?: No - Additonal Travel Details Have you been exposed to anyone with a communicable illness?: No - Travel Symptoms Symptom Screening: None Review of Systems Constitutional: Reports: Chills, Malaise, Weakness Eyes: Denies: Eye discharge, Eye pain, Photophobia, Vision change ENT: Denies: Congestion, Throat pain Respiratory: Denies: Cough, Dyspnea, Hemoptysis, Stridor, Wheezes Cardiovascular: Denies: Chest pain, Palpitations, Syncope Endocrine: Reports: Fatigue. Denies: Polydipsia, Polyuria Gastrointestinal: Reports: Nausea. Denies: Abdominal pain, Diarrhea, Vomiting Genitourinary: Denies: Dysuria, Frequency, Incontinence Musculoskeletal: Denies: Arthralgia, Back pain, Neck pain Skin: Denies: Bruising, Change in color, Rash Neurological: Reports: Confusion (at times per family), Weakness. Denies: Abnormal gait, Headache, Numbness, Paresthesias, Seizure, Tingling, Tremors, Vertigo Psychiatric: Denies: Anxiety Hematological/Lymphatic: Denies: Anemia, Blood Clots, Easy bleeding, Easy bruising Past Medical History - SOCIAL HISTORY Smoking Status: Former smoker Alcohol Use: None Drug Use: None - RESPIRATORY Hx Respiratory Disorders: Yes Hx Bronchitis: Yes (childhood) Hx Pulmonary Embolism: Yes - CARDIOVASCULAR Hx Cardio Disorders: No - NEURO Hx Neuro Disorders: Yes Hx Headaches: Yes (as a teenager) - GI Hx GI Disorders: Yes Hx Abdominal Pain: Yes (endoscopy ) Comment:: nausea - Hx Genitourinary Disorders: Yes Hx Bladder Problem: Yes Hx UTI: Yes Comment:: urinary frequency especially at night - ENDOCRINE Hx Endocrine Disorders: Yes Hx Diabetes: No Hx Thyroid Disease: Yes - MUSCULOSKELETAL Hx Musculoskeletal Disorders: Yes Hx Arthritis: Yes - PSYCH Hx Psych Problems: Yes Hx Depression: Yes Comment:: occasional depression/hoplessness - HEMATOLOGY/ONCOLOGY Hx Hematology/Oncology Disorders: No Family Medical History Any Significant Family History?: Yes Hx Cancer: Mother Hx Diabetes: Mother Hx Heart Disease: Mother Hx HTN: Mother Hx Seizures: Children H&P Meds/Allergies - Allergies Allergies: Allergies Allergy/AdvReac Type Severity Reaction Status Date / Time No Known Drug Allergies Allergy Verified 12/08/18 07:12 - Home Medications Previous Rx's Medication Instructions Recorded Acetaminophen [Tylenol 500Mg Tab] 1,000 mg PO Q6H PRN tablet 12/09/18 Potassium Chloride [Klor-Con] 10 meq PO DAILY #30 tablet.sa 08/27/19 Physical Exam - Vital Signs Vital Signs: Vital Signs - Last 24 Hrs Temp Pulse Pulse Pulse Resp BP BP 08/27/19 09:00 76 16 08/27/19 08:52 98 F 76 14 128/74 08/27/19 05:23 97.2 F L 76 18 142/73 08/26/19 20:55 97.5 F L 69 16 156/76 08/26/19 19:28 98.3 F 72 20 131/79 08/26/19 17:57 98.1 F 81 20 166/76 Pulse Ox 08/27/19 09:00 08/27/19 08:52 96 08/27/19 05:23 95 08/26/19 20:55 98 08/26/19 19:28 97 08/26/19 17:57 99 - General General Appearance: Alert, Oriented x3, Cooperative, No acute distress Limitations: No limitations - Head Head exam: Atraumatic, Normal inspection - Eye Eye exam: Normal appearance, PERRL. negative: Conjunctival injection, Scleral icterus - ENT ENT exam: Normal exam, Mucous membranes moist Ear exam: Normal external inspection Nasal Exam: Normal inspection Mouth exam: Normal external inspection Teeth exam: Normal inspection Throat exam: Normal inspection - Neck Neck exam: Normal inspection, Full ROM. negative: Tenderness - Respiratory Respiratory exam: Normal lung sounds bilaterally. negative: Respiratory distress - Cardiovascular Cardiovascular Exam: Regular rate, Normal rhythm, Normal heart sounds Peripheral Pulses: 2+: Radial (R), Radial (L) - GI/Abdominal GI/Abdominal exam: Soft. negative: Distended, Guarding, Tenderness - Rectal Rectal exam: Deferred - exam: Deferred - Extremities Extremities exam: Normal inspection. negative: Calf tenderness, Pedal edema, Tenderness - Back Back exam: Denies: CVA tenderness (R), CVA tenderness (L) - Neurological Neurological exam: Alert, Oriented X3 - Psychiatric Psychiatric exam: Normal affect, Normal mood - Skin Skin exam: Dry, Intact, Normal color, Warm Results - Labs Result Diagrams: 08/26/19 18:00 08/27/19 06:21 Labs Last 24 Hours: Laboratory Results - last 24 hr 08/26/19 08/26/19 08/26/19 18:00 18:02 18:02 WBC 6.2 RBC 4.51 Hgb 13.7 Hct 40.9 MCV 90.7 MCH 30.4 MCHC 33.5 RDW 13.8 Plt Count 335 MPV 9.7 Gran % 73.1 Lymphocytes % 17.6 Monocytes % 7.1 Eosinophils % 1.6 Basophils % 0.6 Absolute Neutrophils 4.56 PT 25.1 H INR 2.6 APTT 49.9 H Sodium 125 L Potassium 3.5 Chloride 88 L Carbon Dioxide 22.0 Anion Gap 15.0 BUN 8 Creatinine 0.4 L Estimated GFR > 60 Random Glucose 105 Calcium 9.6 Total Bilirubin 0.80 AST 35 ALT 24 Alkaline Phosphatase 71 Total Protein 7.6 Albumin 4.6 Globulin 3.0 Albumin/Globulin Ratio 1.5 Urine Color Urine Appearance Urine pH Ur Specific Reubens Urine Protein Urine Glucose (UA) Urine Ketones Urine Blood Urine Nitrite Urine Bilirubin Urine Urobilinogen Ur Leukocyte Esterase Urine RBC Urine WBC Ur Epithelial Cells 08/26/19 08/27/19 18:11 06:21 WBC RBC Hgb Hct MCV MCH MCHC RDW Plt Count MPV Gran % Lymphocytes % Monocytes % Eosinophils % Basophils % Absolute Neutrophils PT INR APTT Sodium 137 Potassium 3.3 L Chloride 103 Carbon Dioxide 23.0 Anion Gap 11.0 BUN 7 L Creatinine 0.5 Estimated GFR > 60 Random Glucose 83 Calcium 8.5 L Total Bilirubin AST ALT Alkaline Phosphatase Total Protein Albumin Globulin Albumin/Globulin Ratio Urine Color Yellow Urine Appearance Clear Urine pH 7.5 Ur Specific Reubens 1.010 Urine Protein Negative Urine Glucose (UA) Negative Urine Ketones Trace H Urine Blood Trace-i Urine Nitrite Negative Urine Bilirubin Negative Urine Urobilinogen 0.2 Ur Leukocyte Esterase Negative Urine RBC 0 - 2 Urine WBC 0 - 2 Ur Epithelial Cells 0 - 2 VTE H&P Assessment - Risk for VTE Risk for VTE: Yes Risk Level: Moderate Risk Assessment Date: 08/26/19 Risk Assessment Time: 22:00 VTE Orders Placed or Will Be Placed: Yes Plan - Detailed Diagnosis and Plan (1) Hyponatremia Status: Acute Base Code: E87.1 - HYPO-OSMOLALITY AND HYPONATREMIA Comment: 08/27/19 - Na in ED 125 - Gentle IV hydration with 0.9 NS - Recheck sodium today - Likely etiolgy from over PO water hydration (2) DVT prophylaxis Status: Acute Base Code: [id number] - Comment: 08/27/19: -Moderate risk due to age and hospitalization -Continue home coumadin regimen -INR 2.6 08/26/19 (3) Full code status Status: Acute Base Code: Z78.9 - OTHER SPECIFIED HEALTH STATUS Comment: 08/27/19 -Full code status this admission
== END 2019-08-27 12:41 | disposition home or self-care (01) ==
LOC: ER 17:45 → MEDSURG 19:44
PROVIDERS: ADMIT Internal Medicine; ATTEND Internal Medicine
DX: E87.1 Hypo-osmolality and hyponatremia (principal); R53.1 Weakness; R11.0 Nausea; E03.9 Hypothyroidism, unspecified; M19.90 Unspecified osteoarthritis, unspecified site; Z87.891 Personal history of nicotine dependence; Z86.711 Personal history of pulmonary embolism; R35.0 Frequency of micturition
CPT/HCPCS: 80048; 80053; 81001; 85025; 85610; 85730; 96360; 96361; 99220; 99285; J7030

== ENCOUNTER 2019-09-17 17:08 | Emergency (ER) | payer MEDICARE ==
[2019-09-17] MEDS ORDERED: MECLIZINE 25 MG TABLET PO ONE (17:25)
[2019-09-17] MEDS ORDERED: 0.9 % SODIUM CHLORIDE 1,000 ML BAG IV ONE (17:25)
--- NOTE | 2019-09-17 17:25 | Emergency Department Record ---
History of Present Illness - General Chief Complaint: Dizziness Stated Complaint: DIZZY AND NAUSEA Time Seen by Provider: 09/17/19 17:16 Source: Patient Mode of Arrival: Ambulatory Limitations: No limitations - History of Present Illness Initial Comments: The patient is here due to intermittent dizziness, lightheadedness, nausea and tremors for one day. She has had similar issues off and on for months. The tremors seem to be worse today. The patient denies any Cp, SOB, YOO, visual changes or weakness on one side of the body. She has been talking and swallowing normally. She has had similar issues recently when she was hospitalized for low sodium a month or so ago. The patient does take Coumadin for a remote hx of PE's. She has been ambulating normally and denies any falls or head trauma. MD Complaint: Dizziness, Lightheadedness Onset/Timin -: Days(s) Description: Nausea, Sense of movement History of Same: Yes History of Trauma: No Improves With: Nothing Worsens With: Nothing Associated Symptoms: Denies other symptoms - Avtar Coma Scale Eye Response: (4) Open spontaneously Motor Response: (6) Obeys commands Verbal Response: (5) Oriented Avtar Total: 15 - Related Data Previous Rx's Medication Instructions Recorded Acetaminophen [Tylenol 500Mg Tab] 1,000 mg PO Q6H PRN tablet 12/09/18 Potassium Chloride [Klor-Con] 10 meq PO DAILY #30 tablet.sa 08/27/19 Meclizine HCl [Antivert] 25 mg PO BID #14 tab 09/17/19 Allergies Allergy/AdvReac Type Severity Reaction Status Date / Time No Known Drug Allergies Allergy Verified 09/17/19 17:16 Travel Screening - Travel/Exposure Within Last 30 Days Have you traveled within the last 30 days?: No Review of Systems Constitutional: Denies: Chills, Fever Eyes: Denies: Eye discharge ENT: Denies: Congestion Respiratory: Denies: Cough, Dyspnea Cardiovascular: Denies: Arrhythmia Endocrine: Reports: Fatigue Gastrointestinal: Reports: Nausea Genitourinary: Denies: Dysuria Musculoskeletal: Denies: Arthralgia Past Medical History - SOCIAL HISTORY Smoking Status: Former smoker Alcohol Use: None Drug Use: None - RESPIRATORY Hx Respiratory Disorders: Yes Hx Bronchitis: Yes (childhood) Hx Pulmonary Embolism: Yes - CARDIOVASCULAR Hx Cardio Disorders: No - NEURO Hx Neuro Disorders: Yes Hx Headaches: Yes (as a teenager) - GI Hx GI Disorders: Yes Hx Abdominal Pain: Yes (endoscopy ) Comment:: nausea - Hx Genitourinary Disorders: Yes Hx Bladder Problem: Yes Hx UTI: Yes Comment:: urinary frequency especially at night - ENDOCRINE Hx Endocrine Disorders: Yes Hx Diabetes: No Hx Thyroid Disease: Yes - MUSCULOSKELETAL Hx Musculoskeletal Disorders: Yes Hx Arthritis: Yes - PSYCH Hx Psych Problems: Yes Hx Depression: Yes Comment:: occasional depression/hoplessness - HEMATOLOGY/ONCOLOGY Hx Hematology/Oncology Disorders: No Family Medical History Any Significant Family History?: Yes Hx Cancer: Mother Hx Diabetes: Mother Hx Heart Disease: Mother Hx HTN: Mother Hx Seizures: Children Physical Exam - General General Appearance: Alert, Oriented x3, Cooperative, No acute distress - Head Head exam: Atraumatic, Normocephalic, Normal inspection - Eye Eye exam: Normal appearance, PERRL, EOMI. negative: Conjunctival injection, Nystagmus - ENT ENT exam: negative: TM's normal bilaterally (The patient does have bilateral cerumen blocking the views of her TM's. The patient states that has been a chronic problem for her and Dr. Galo is aware of it.) Throat exam: Normal inspection. negative: Tonsillar erythema, Tonsillar exudate - Neck Neck exam: Normal inspection, Full ROM. negative: Tenderness - Respiratory Respiratory exam: Normal lung sounds bilaterally. negative: Respiratory distress - Cardiovascular Cardiovascular Exam: Regular rate, Normal rhythm, Normal heart sounds - GI/Abdominal GI/Abdominal exam: Soft, Normal bowel sounds. negative: Tenderness - Extremities Extremities exam: Normal inspection, Full ROM, Normal capillary refill. negative: Tenderness - Neurological Neurological exam: Alert, CN II-XII intact, Normal gait, Oriented X3, Reflexes normal, Other (Neg Drift and Rhomberg exams.). negative: Abnormal gait, Altered, Motor sensory deficit - Skin Skin exam: negative: Rash Course Vital Signs 09/17/19 17:13 Temperature 98.0 F Pulse Rate 76 Respiratory 20 Rate Blood Pressure 161/82 Pulse Ox 99 - Reevaluation(s) Reevaluation #1: The patient is feeling much better and denies any dizziness or weakness. She has been up walking and states her symptoms have resolved. She feels the antivert is helping her so we will provide a script for home. She does have an appointment with Dr. Galo next week for recheck. 09/17/19 18:46 Medical Decision Making - Data Complexity MDM Data: Labs Ordered and/or Reviewed, X-Ray Ordered and/or Reviewed, EKG Ordered and/or Reviewed - Lab Data Result diagrams: 09/17/19 17:30 09/17/19 17:30 - EKG Data -: EKG Interpreted by Me EKG: No Acute Changes, Normal EKG, Unchanged From Previous - Radiology Data Radiology results: Report reviewed (Head CT: Neg. ) Disposition Disposition: Discharge Clinical Impression: Weakness generalized Disposition: Home, Self-Care Condition: (2) Stable Instructions: Dizziness (ED) Additional Instructions: Please continue your regular medicines and please take the Antivert as directed. Please keep the appointment with Dr. Galo for next week. Return to the ER for any worsening symptoms. Prescriptions: Meclizine HCl [Antivert] 25 mg PO BID #14 tab Forms: Patient Portal Access Time of Disposition: 18:49 Quality - Quality Measures Quality Measures: N/A - Blood Pressure Screening View Details: Yes Does Patient Have Any of the Following: No Blood Pressure Classification: Pre-Hypertensive BP Reading Systolic Measurement: 161 Diastolic Measurement: 82 Screening for High Blood Pressure: < Pre-Hypertensive BP, F/U Documented > [G8950] Pre-Hypertensive Follow-up Interventions: Referral to alternative/primary care provider.
[2019-09-17 17:33] LABS: BASO % 0.7 % (0-6); EOS % 2.5 % (0-6); HEMATOCRIT 40.5 % (35.0-47.0); HEMOGLOBIN 13.4 gm/dl (11.6-16.0); LYMPH % 21.4 % (16-45); MEAN CELL VOLUME 93.3 fl (81-97); MEAN CORPUSCULAR HEMOGLOBIN 30.9 pg (27-33); MEAN CORPUSCULAR HGB CONC 33.1 g/dl (32-36); MEAN PLATELET VOLUME 9.3 fl (7.4-10.4); MONO % 8.4 % (0-9); PLATELET COUNT 330 K/uL (130-400); RED BLOOD COUNT 4.34 M/uL (3.80-5.40); RED CELL DISTRIBUTION WIDTH 14.4 % (11.5-14.5); WHITE BLOOD COUNT W/O DIFF 6.9 K/uL (4.2-12.2)
[2019-09-17 17:48] LABS: INR 2.8; PARTIAL THROMBOPLASTIN TIME 41.3 SECONDS (24.5-39.1)
[2019-09-17 17:49] LABS: BLOOD UREA NITROGEN 21 mg/dL (8-23); CREATININE 0.5 mg/dL (0.5-0.9); EST GLOMERULAR FILTRATION RATE > 60 mL/min
[2019-09-17 17:51] LABS: GLUCOSE,RANDOM 107 mg/dL (74-109)
[2019-09-17 17:54] LABS: ALB/GLOB RATIO 1.4 (1.1-1.8); ALBUMIN 4.1 g/dL (4.0-5.0); ALKALINE PHOSPHATASE 71 U/L (35-104); ALT/SGPT 28 U/L (<33); AST/SGOT 29 U/L (10.0-35.0)
[2019-09-17 18:04] LABS: THYROID STIMULATING HORMONE 1.19 uIU/mL (0.270-4.20)
[2019-09-17 18:12] LABS: URINE APPEARANCE CLEAR; URINE BILIRUBIN NEGATIVE (NEGATIVE); URINE BLOOD TRACE-I (NEGATIVE); URINE COLOR YELLOW; URINE GLUCOSE (UA) NEGATIVE (NEGATIVE); URINE KETONE NEGATIVE (NEGATIVE); URINE LEUKOCYTE ESTERASE NEGATIVE (NEGATIVE); URINE NITRITE NEGATIVE (NEGATIVE); URINE PROTEIN NEGATIVE (NEGATIVE); URINE UROBILINOGEN 0.2 E.U./dL (0.20 - 1.00)
[2019-09-17 18:18] LABS: URINE WBC NONE SEEN (0-2/hpf)
[2019-09-17 18:19] LABS: URINE EPITHELIAL CELLS 0 - 2 (FEW)
--- NOTE | 2019-09-17 18:31 | CT SCAN REPORT ---
EXAMINATION: CT Head without IV Contrast EXAM DATE: 09/17/2019 6:03 PM TECHNIQUE: Standard protocol CT images of the head were obtained without intravenous contrast. Brizuela l and sagittal reconstructed images were created. INDICATION: weak and dizzy COMPARISON: None HAND DOMINANCE: Unknown. ENCOUNTER: Not applicable FINDINGS: Negative for acute intracranial hemorrhage, midline shift or mass effect. Ventricles and sulci are wi thin normal limits for patient's age. The right maxillary sinus appears hypoplastic in comparison to the left. Remainder of the paranasal s inuses are clear. Mastoid air cells are aerated. Orbits are intact. IMPRESSION: Negative for acute intracranial hemorrhage, midline shift or mass effect. Dictated by: Chloe Mann MD on 09/17/2019 6:18 PM. .
== END 2019-09-17 18:56 | disposition home or self-care (01) ==
LOC: ER 17:08
DX: R53.1 Weakness (principal); R42 Dizziness and giddiness; H61.23 Impacted cerumen, bilateral; R11.0 Nausea; Z86.711 Personal history of pulmonary embolism; Z79.01 Long term (current) use of anticoagulants; Z87.891 Personal history of nicotine dependence
CPT/HCPCS: 70450; 80053; 81001; 84443; 84484; 85025; 85610; 85730; 93005; 93010; 96360; 99284; J7030

== ENCOUNTER 2019-09-27 09:24 | Day surgery (SDC) | payer MEDICARE ==
[2019-09-27] MEDS ORDERED: LIDOCAINE 2% MDV (20MG/ML) 20ML VIAL IV ONE (09:25)
[2019-09-27] MEDS ORDERED: PROPOFOL 10 MG/ML VIAL IV ONE (09:25)
[2019-09-27 10:04] LABS: PROTHROMBIN TIME (PATIENT) 10.7 SECONDS (9.5-12.1)
--- NOTE | 2019-09-28 07:20 | Operative Note ---
DATE: 09/27/2019 OPERATION: ESOPHAGOGASTRODUODENOSCOPY with multiple biopsies. INDICATION: Recurring nausea, cause unclear. The patient presents today for upper endoscopy. She also complains of some possible inner ear problems causing some dizziness. This will be evaluated further per her primary care team. ANESTHESIA: Intravenous sedation was administered by the department of anesthesiology and included Diprivan titrated to effect. PROCEDURE: Following informed consent from this alert individual, including a discussion of the risks and benefits of the procedure and an opportunity for the patient to ask questions, the patient was in the left lateral decubitus position. The Olympus [id number] video endoscope was inserted into the esophagus without resistance. The proximal esophagus had a normal appearance with normal folds and distensibility. The distal esophagus as well was free from changes. The squamocolumnar junction was smooth and well defined. There was a small less than 2 cm hiatal hernia noted. The hernia sac itself was free from changes. The subdiaphragmatic stomach was entered and demonstrated some erythematous mucosa particularly towards the gastric antrum. There were no ulcerations or erosions noted. The pylorus was patent. The duodenal bulb, sweep and descending duodenum were examined in a serial fashion and found to be normal. The endoscope was then drawn back into the body of the stomach. Retroflexion was accomplished following air insufflation and demonstrated probable gastric fundal polyp high in the fundus which was removed with biopsy forceps. The endoscope was then straightened and withdrawn back through a normal esophagus and removed from the patient. She tolerated the procedure well and was returned to the recovery area in stable condition. IMPRESSION: 1. Small hiatal hernia. 2. Mild antral gastritis, biopsies taken. 3. Gastric fundal polyp, removed with biopsy forceps. RECOMMENDATION: The patient was advised she should receive a copy of her pathology report at home in the next 2-3 weeks. If not, she was asked to call my office to review results of testing today. Followup will also be with Ryne Galo DO. As always, thank you for allowing me to participate in the care of your patient. SUYAPA
== END 2019-09-27 11:30 | disposition home or self-care (01) ==
LOC: HOP 09:24
PROVIDERS: ATTEND Internal Medicine Gastroenterology
DX: R11.0 Nausea (principal); R10.13 Epigastric pain; R93.3 Abnormal findings on diagnostic imaging of other parts of digestive tract; K44.9 Diaphragmatic hernia without obstruction or gangrene; K29.50 Unspecified chronic gastritis without bleeding; K31.7 Polyp of stomach and duodenum; E78.00 Pure hypercholesterolemia, unspecified; Z79.01 Long term (current) use of anticoagulants; R42 Dizziness and giddiness
CPT/HCPCS: 85610

== ENCOUNTER 2019-10-20 17:10 | Emergency (ER) | payer MEDICARE ==
--- NOTE | 2019-10-20 18:16 | Emergency Department Record ---
History of Present Illness - General Stated complaint: NOSE BLEED Time Seen by Provider: 10/20/19 18:11 Source: Patient Mode of Arrival: Ambulatory Limitations: No limitations - History of Present Illness Initial comments: 74 yo female presents to ED for evaluation of a nose bleed that occurred at home this evening, reports a history of similar symptoms previously. Patient reports that she currently takes Warfarin for previous PE x 2, has undergone cauterization previously. Patient denies trauma or injury, reports that she was able to get her bleeding stopped with cotton tissue prior to arrival. MD complaint: Epistaxis -: Hour(s) Location: Nose Severity: Moderate Consistency: Constant Improves with: Pressure Worsens with: None Context-Epistaxis: Warfarin use - Related Data Previous Rx's Medication Instructions Recorded Acetaminophen [Tylenol 500Mg Tab] 1,000 mg PO Q6H PRN tablet 12/09/18 Potassium Chloride [Klor-Con] 10 meq PO DAILY #30 tablet.sa 08/27/19 Allergies Allergy/AdvReac Type Severity Reaction Status Date / Time No Known Drug Allergies Allergy Verified 10/20/19 19:19 Review of Systems Constitutional: Denies: Chills, Fever, Malaise, Night sweats Eyes: Denies: Eye discharge, Eye pain ENT: Reports: Epistaxis. Denies: Congestion, Ear pain Respiratory: Denies: Cough, Dyspnea Cardiovascular: Denies: Chest pain, Dyspnea on exertion Endocrine: Denies: Fatigue, Heat or cold intolerance Gastrointestinal: Denies: Abdominal pain, Nausea, Vomiting Genitourinary: Denies: Incontinence, Retention Musculoskeletal: Denies: Arthralgia, Back pain Skin: Denies: Bruising, Change in color Neurological: Denies: Abnormal gait, Confusion, Headache, Tingling, Tremors Psychiatric: Denies: Anxiety Hematological/Lymphatic: Reports: Easy bleeding, Easy bruising. Denies: Anemia, Blood Clots Past Medical History - SOCIAL HISTORY Smoking Status: Former smoker - RESPIRATORY Hx Respiratory Disorders: Yes Hx Bronchitis: Yes (childhood) Hx Pulmonary Embolism: Yes - CARDIOVASCULAR Hx Cardio Disorders: No - NEURO Hx Dizziness: Yes - GI Hx GI Disorders: Yes Hx Abdominal Pain: Yes (endoscopy ) Comment:: nausea - Hx Genitourinary Disorders: Yes Hx Bladder Problem: Yes Hx UTI: Yes Comment:: urinary frequency especially at night - ENDOCRINE Hx Endocrine Disorders: Yes Hx Diabetes: No Hx Thyroid Disease: Yes - MUSCULOSKELETAL Hx Musculoskeletal Disorders: Yes Hx Arthritis: Yes - PSYCH Hx Psych Problems: Yes Hx Depression: Yes Comment:: occasional depression/hoplessness - HEMATOLOGY/ONCOLOGY Hx Hematology/Oncology Disorders: No Family Medical History Hx Cancer: Mother Hx Diabetes: Mother Hx Heart Disease: Mother Hx HTN: Mother Hx Seizures: Children Physical Exam - General General Appearance: Alert, Oriented x3, Cooperative, No acute distress Limitations: No limitations - Head Head exam: Atraumatic, Normocephalic, Normal inspection Head exam detail: negative: Abrasion, Contusion, Kruse's sign, General tenderness, Hematoma, Laceration - Eye Eye exam: Normal appearance. negative: Conjunctival injection, Periorbital swelling, Periorbital tenderness, Scleral icterus - ENT Ear exam: negative: Auricular hematoma, Auricular trauma Nasal Exam: Dried blood. negative: Active bleeding, Discharge, Sinus tenderness Mouth exam: negative: Drooling, Laceration, Muffled voice, Tongue elevation - Neck Neck exam: Normal inspection. negative: Meningismus, Tenderness - Respiratory Respiratory exam: Normal lung sounds bilaterally. negative: Respiratory distress, Rhonchi, Stridor, Wheezes - Cardiovascular Cardiovascular Exam: Regular rate, Normal rhythm, Normal heart sounds - GI/Abdominal GI/Abdominal exam: Soft. negative: Distended, Rebound, Rigid, Tenderness - Rectal Rectal exam: Deferred - exam: Deferred - Extremities Extremities exam: Normal inspection. negative: Pedal edema, Tenderness - Back Back exam: Denies: CVA tenderness (R), CVA tenderness (L) - Neurological Neurological exam: Alert, Normal gait, Oriented X3 - Psychiatric Psychiatric exam: Normal affect, Normal mood - Skin Skin exam: Normal color. negative: Abrasion Type of lesion: negative: abrasion Course Vital Signs 10/20/19 18:10 Temperature 97.5 F L Pulse Rate [ 63 Pulse Ox Probe] Respiratory 20 Rate Blood Pressure 143/77 [Left Arm] Pulse Ox 99 - Reevaluation(s) Reevaluation #1: 10/20/19 18:41 Laboratory studies were reviewed and appear grossly unremarkable for an acute process except for: INR 4.0 Reevaluation #2: 10/20/19 18:48 TLE-soaked cotton balls were removed Area of Kisselbach's plexus of the left medial septum was found to be mildly bleeding, silver nitrate was applied to the area with cessation ob bleeding. Will continue to monitor for re-bleeding. Reevaluation #3: 10/20/19 19:15 PM Patient was reassessed, no further bleeding on re-examination. Patient appears stable for discharge at this time with return for any worsening of her epistaxis symptoms. Medical Decision Making - Lab Data Result diagrams: 10/20/19 18:15 10/20/19 18:15 Disposition Disposition: Discharge Clinical Impression: Epistaxis, Anticoagulated on warfarin Disposition: Home, Self-Care Condition: (2) Stable Instructions: Nosebleed (ED) Additional Instructions: Return to ED if your symptoms worsen or if you have any concerns Follow-up with Dr. Rollins in 3-5 days as directed. Forms: Patient Portal Access Time of Disposition: 18:42 Quality - Quality Measures Quality Measures: N/A - Blood Pressure Screening Does Patient Have Any of the Following: Active Dx of HTN Blood Pressure Classification: Hypertensive Reading Systolic Measurement: 143 Diastolic Measurement: 77 Screening for High Blood Pressure: Patient Exclusion, Hx of HTN [G9744]
[2019-10-20 18:23] LABS: ABSOLUTE NEUTROPHIL COUNT 5.57; BASO % 0.6 % (0-6); EOS % 1.4 % (0-6); GRAN % 70.9 % (47-80); HEMATOCRIT 42.3 % (35.0-47.0); HEMOGLOBIN 13.9 gm/dl (11.6-16.0); LYMPH % 20.6 % (16-45); MEAN CELL VOLUME 93.6 fl (81-97); MEAN CORPUSCULAR HEMOGLOBIN 30.8 pg (27-33); MEAN CORPUSCULAR HGB CONC 32.9 g/dl (32-36); MEAN PLATELET VOLUME 9.5 fl (7.4-10.4); MONO % 6.5 % (0-9); PLATELET COUNT 312 K/uL (130-400); RED BLOOD COUNT 4.52 M/uL (3.80-5.40); RED CELL DISTRIBUTION WIDTH 14.1 % (11.5-14.5); WHITE BLOOD COUNT W/O DIFF 7.9 K/uL (4.2-12.2)
[2019-10-20 18:34] LABS: BLOOD UREA NITROGEN 16 mg/dL (8-23); CREATININE 0.6 mg/dL (0.5-0.9); EST GLOMERULAR FILTRATION RATE > 60 mL/min
[2019-10-20 18:36] LABS: PROTHROMBIN TIME (PATIENT) 38.2 SECONDS (9.5-12.1)
[2019-10-20 18:37] LABS: GLUCOSE,RANDOM 99 mg/dL (74-109)
== END 2019-10-20 19:37 | disposition home or self-care (01) ==
LOC: ER 17:10
DX: R04.0 Epistaxis (principal); Z79.01 Long term (current) use of anticoagulants; Z87.891 Personal history of nicotine dependence
CPT/HCPCS: 30901; 80048; 85025; 85610; 99284

== ENCOUNTER 2019-10-29 14:48 | Emergency (ER) | payer MEDICARE ==
[2019-10-29 15:43] LABS: ABSOLUTE NEUTROPHIL COUNT 4.99; BASO % 0.5 % (0-6); EOS % 2.3 % (0-6); GRAN % 68.5 % (47-80); HEMATOCRIT 43.2 % (35.0-47.0); HEMOGLOBIN 14.2 gm/dl (11.6-16.0); LYMPH % 20.7 % (16-45); MEAN CELL VOLUME 93.7 fl (81-97); MEAN CORPUSCULAR HEMOGLOBIN 30.8 pg (27-33); MEAN CORPUSCULAR HGB CONC 32.9 g/dl (32-36); MEAN PLATELET VOLUME 9.9 fl (7.4-10.4); PLATELET COUNT 308 K/uL (130-400); RED BLOOD COUNT 4.61 M/uL (3.80-5.40); RED CELL DISTRIBUTION WIDTH 14.2 % (11.5-14.5); WHITE BLOOD COUNT W/O DIFF 7.3 K/uL (4.2-12.2)
[2019-10-29 15:55] LABS: INR 1.6; PROTHROMBIN TIME (PATIENT) 16.4 SECONDS (9.5-12.1)
[2019-10-29 15:56] LABS: BLOOD UREA NITROGEN 13 mg/dL (8-23); CREATININE 0.5 mg/dL (0.5-0.9); EST GLOMERULAR FILTRATION RATE > 60 mL/min
[2019-10-29 15:59] LABS: GLUCOSE,RANDOM 115 mg/dL (74-109)
--- NOTE | 2019-10-29 17:50 | CT ANGIOGRAM REPORT ---
EXAMINATION: CT Angiography of the Thorax EXAM DATE: 10/29/2019 4:47 PM TECHNIQUE: Standard protocol CT angiogram images were obtained through the chest following the admini stration of intravenous contrast. Coronal and sagittal MIP 3-D reformations were performed. IV Contrast: The amount and type of contrast are recorded in the medical record. INDICATION: sob hx pe. COMPARISON: 04/21/2018 ENCOUNTER: Not applicable FINDINGS: Pulmonary Artery: Subtle linear filling defects within branches of the left lower lobe pulmonary yuliana ry, consistent with sequelae of prior pulmonary embolism. No acute pulmonary embolism. Aorta: No thoracic aortic aneurysm or dissection is present. Right Heart Strain: None. Heart : Mild 4 chamber cardiac enlargement. No pericardial effusion. Nasrin and Mediastinum: No lymphadenopathy. Lung Parenchyma: Image quality degraded by respiratory motion. No acute infiltrate. Subsegmental ate lectasis in the dependent portions of both lungs. No concerning nodules or masses. Stable emphysema. Central Airways: Normal. Pleural Effusion: None. Upper Abdomen: 1.7 cm soft tissue nodule in the right upper abdomen, decreased in size compared to 1 CT abdomen. Musculoskeletal and Chest Wall: Unremarkable. IMPRESSION: 1. No evidence of acute pulmonary embolism. Chronic sequelae of prior pulmonary embolus. 2. Decrease in size of nonspecific soft tissue nodule in the right upper abdomen. Recommend follow-up CT abdomen and pelvis with IV contrast. Dictated by: Chico Mcclain MD on 10/29/2019 5:37 PM. .
[2019-10-29] MEDS ORDERED: ENOXAPARIN 100 MG/ML SYR SQ ONE (18:32)
--- NOTE | 2019-10-29 18:36 | Emergency Department Record ---
History of Present Illness - General Chief Complaint: Dizziness Stated Complaint: DIZZY,LIGHT HEADED Time Seen by Provider: 10/29/19 15:17 Source: Patient Mode of Arrival: Ambulatory Limitations: No limitations - History of Present Illness Initial Comments: pt c/o being sob and being dizzy. she is afraid that she has another blood clot. Complaint: Dizziness Onset/Timin -: Days(s) Timing: Awoke with symptoms Description: Lightheadedness History of Same: Yes History of Trauma: No Severity: Mild Improves With: Nothing Worsens With: Nothing Associated Symptoms: Shortness of breath - Elizabeth Coma Scale Eye Response: (4) Open spontaneously Motor Response: (6) Obeys commands Verbal Response: (5) Oriented Elizabeth Total: 15 - Related Data Previous Rx's Medication Instructions Recorded Acetaminophen [Tylenol 500Mg Tab] 1,000 mg PO Q6H PRN tablet 12/09/18 Potassium Chloride [Klor-Con] 10 meq PO DAILY #30 tablet.sa 08/27/19 Allergies Allergy/AdvReac Type Severity Reaction Status Date / Time No Known Drug Allergies Allergy Verified 10/29/19 15:02 Travel Screening - Travel/Exposure Within Last 30 Days Have you traveled within the last 30 days?: No Review of Systems Reviewed: No additional complaints except as noted below Constitutional: Reports: As per HPI. Denies: Chills, Fever, Malaise, Night sweats, Weakness, Weight change Eyes: Reports: As per HPI. Denies: Eye discharge, Eye pain, Photophobia, Vision change ENT: Reports: As per HPI. Denies: Congestion, Dental pain, Ear pain, Epistaxis, Hearing loss, Throat pain Respiratory: Reports: As per HPI, Dyspnea. Denies: Cough, Hemoptysis, Stridor, Wheezes Cardiovascular: Reports: As per HPI. Denies: Arrhythmia, Chest pain, Dyspnea on exertion, Edema, Murmurs, Orthopnea, Palpitations, Paroxysmal nocturnal dyspnea, Rheumatic Fever, Syncope Endocrine: Reports: As per HPI. Denies: Fatigue, Heat or cold intolerance, Polydipsia, Polyuria Gastrointestinal: Reports: As per HPI. Denies: Abdominal pain, Constipation, Diarrhea, Hematemesis, Hematochezia, Melena, Nausea, Vomiting Genitourinary: Reports: As per HPI. Denies: Abnormal menses, Discharge, Dyspareunia, Dysuria, Frequency, Hematuria, Incontinence, Retention, Urgency Musculoskeletal: Reports: As per HPI. Denies: Arthralgia, Back pain, Gout, Joint swelling, Myalgia, Neck pain Skin: Reports: As per HPI. Denies: Bruising, Change in color, Change in hair/nails, Lesions, Pruritus, Rash Neurological: Reports: As per HPI. Denies: Abnormal gait, Confusion, Headache, Numbness, Paresthesias, Seizure, Tingling, Tremors, Vertigo, Weakness Psychiatric: Reports: As per HPI. Denies: Anxiety, Auditory hallucinations, Depression, Homicidal thoughts, Suicidal thoughts, Visual hallucinations Hematological/Lymphatic: Reports: As per HPI. Denies: Anemia, Blood Clots, Easy bleeding, Easy bruising, Swollen glands Past Medical History - SOCIAL HISTORY Smoking Status: Former smoker Alcohol Use: None Drug Use: None - RESPIRATORY Hx Respiratory Disorders: Yes Hx Bronchitis: Yes (childhood) Hx Pulmonary Embolism: Yes - CARDIOVASCULAR Hx Cardio Disorders: No - NEURO Hx Neuro Disorders: Yes Hx Dizziness: Yes - GI Hx GI Disorders: Yes Hx Abdominal Pain: Yes Comment:: nausea - Hx Genitourinary Disorders: Yes Hx Bladder Problem: Yes Hx UTI: Yes Comment:: urinary frequency especially at night - ENDOCRINE Hx Endocrine Disorders: Yes Hx Diabetes: No Hx Thyroid Disease: Yes - MUSCULOSKELETAL Hx Musculoskeletal Disorders: Yes Hx Arthritis: Yes - PSYCH Hx Psych Problems: Yes Hx Depression: Yes Comment:: occasional depression/hoplessness - HEMATOLOGY/ONCOLOGY Hx Hematology/Oncology Disorders: No Family Medical History Any Significant Family History?: Yes Hx Cancer: Mother Hx Diabetes: Mother Hx Heart Disease: Mother Hx HTN: Mother Hx Seizures: Children Physical Exam - General General Appearance: Alert, Oriented x3, Cooperative, Mild distress - Head Head exam: Normal inspection - Eye Eye exam: Normal appearance, PERRL, EOMI Pupils: Normal accommodation - ENT ENT exam: Normal exam, Mucous membranes moist, Normal external ear exam, Normal orophraynx Ear exam: Normal external inspection. negative: External canal tenderness Nasal Exam: Normal inspection. negative: Discharge, Sinus tenderness Mouth exam: Normal external inspection, Tongue normal Teeth exam: Normal inspection. negative: Dental caries Throat exam: Normal inspection. negative: Tonsillar erythema, Tonsillar exudate - Neck Neck exam: Normal inspection, Full ROM. negative: Tenderness - Respiratory Respiratory exam: Normal lung sounds bilaterally. negative: Respiratory distress - Cardiovascular Cardiovascular Exam: Regular rate, Normal rhythm, Normal heart sounds - GI/Abdominal GI/Abdominal exam: Soft, Normal bowel sounds. negative: Tenderness - Rectal Rectal exam: Deferred - exam: Deferred - Extremities Extremities exam: Normal inspection, Full ROM, Normal capillary refill. negative: Tenderness - Back Back exam: Reports: Normal inspection, Full ROM. Denies: Muscle spasm, Rash noted, Tenderness - Neurological Neurological exam: Alert, CN II-XII intact, Normal gait, Oriented X3 - Psychiatric Psychiatric exam: Normal affect, Normal mood - Skin Skin exam: Dry, Intact, Normal color, Warm Course Vital Signs 10/29/19 10/29/19 14:59 17:00 Temperature 98.5 F 97.7 F Pulse Rate 68 Pulse Rate [ 67 Pulse Ox Probe] Respiratory 18 18 Rate Blood Pressure 144/80 Blood Pressure 148/76 [Left Arm] Pulse Ox 99 99 - Reevaluation(s) Reevaluation #1: 10/29/19 18:34 ct is neg for pe. small nodule in abdomen. pt is subtherapeutic on coumadin so she is being given a bridging dose of lovenox. Medical Decision Making - Lab Data Result diagrams: 10/29/19 15:05 10/29/19 15:05 Lab Results 10/29/19 10/29/19 10/29/19 Range/Units 15:05 15:05 15:05 WBC 7.3 (4.2-12.2) K/uL RBC 4.61 (3.80-5.40) M/uL Hgb 14.2 (11.6-16.0) gm/dl Hct 43.2 (35.0-47.0) % MCV 93.7 (81-97) fl MCH 30.8 (27-33) pg MCHC 32.9 (32-36) g/dl RDW 14.2 (11.5-14.5) % Plt Count 308 (130-400) K/uL MPV 9.9 (7.4-10.4) fl Gran % 68.5 (47-80) % Lymphocytes % 20.7 (16-45) % Monocytes % 8.0 (0-9) % Eosinophils % 2.3 (0-6) % Basophils % 0.5 (0-6) % Absolute Neutrophils 4.99 PT 16.4 H (9.5-12.1) SECONDS INR 1.6 Sodium 132 L (136-145) mmol/L Potassium 4.0 (3.4-4.5) mmol/L Chloride 95 L (98-107) mmol/L Carbon Dioxide 24.0 (22-29) mmol/L Anion Gap 13.0 (7-16) BUN 13 (8-23) mg/dL Creatinine 0.5 (0.5-0.9) mg/dL Estimated GFR > 60 mL/min Random Glucose 115 H (74-109) mg/dL Calcium 9.5 (8.8-10.2) mg/dL NT-Pro-B Natriuret Pep 106.70 (<125) pg/mL Disposition Disposition: Discharge Clinical Impression: Shortness of breath, Dizziness, Subtherapeutic anticoagulation Disposition: Home, Self-Care Condition: (1) Good Instructions: Dyspnea (ED), Shortness of Breath (ED), Warfarin (By mouth) Additional Instructions: follow up with family doctor. return sooner if worse. have inr rechecked on friday. have abdominal ct with contrast in follow up to reevaluate abdominal nodule Quality - Quality Measures Quality Measures: N/A - Blood Pressure Screening Does Patient Have Any of the Following: No Blood Pressure Classification: Pre-Hypertensive BP Reading Systolic Measurement: 144 Diastolic Measurement: 80 Screening for High Blood Pressure: < Pre-Hypertensive BP, F/U Documented > [G8950] Pre-Hypertensive Follow-up Interventions: Follow-up with rescreen every year.
== END 2019-10-29 18:50 | disposition home or self-care (01) ==
LOC: ER 14:48
DX: R79.1 Abnormal coagulation profile (principal); R06.02 Shortness of breath; R42 Dizziness and giddiness; R51 Headache; R19.00 Intra-abdominal and pelvic swelling, mass and lump, unspecified site; Z87.891 Personal history of nicotine dependence; Z79.01 Long term (current) use of anticoagulants; Z86.711 Personal history of pulmonary embolism
CPT/HCPCS: 99284 ×2; 96372; 85025; 85610; 80048; 83880; 71275; Q9967; J1650